=== PATIENT | male | born 1955 | race Caucasian/White ===

== ENCOUNTER → 2016-08-25 | Outpatient (CLI) | payer BC ==
[~2016-08-25] MED LIST: ASC400 PO; ASTNS NAE; BUPR200T2 PO; CETI10TA84 PO; CYCL-259 PO; ESOM40GR PO; HYOS0.1255 PO; LISD50CA PO; MULT-506 PO; SILD50TA PO; THIA100T11 PO; WARF5TAB90 PO; WARF7.5T PO
== END | disposition home or self-care (01) ==
LOC: C.RDSM 14:17
PROVIDERS: ATTEND Physical Medicine & Rehabilitation Sports Medicine
DX: M25.572 Pain in left ankle and joints of left foot (principal)

== ENCOUNTER 2023-01-16 07:40 | Observation (INO) ==
--- NOTE | 2023-01-16 08:02 | Emergency Department Note ---
History of Present Illness General Chief complaint: Chest Pain Stated complaint: CHEST/UPPER ABDOMINAL PAIN, SOB Time Seen by Provider: 01/16/23 07:48 History of Present Illness Maximum Pain Intensity: 8 67-year-old male with a history of cholelithiasis presents with an onset of midepigastric and right upper quadrant abdominal pain that woke him from sleep approximately 3 hours prior to arrival. Patient states nausea however no vomiting no diarrhea. Patient denies any substernal chest pressure denies shortness of breath denies cough denies hemoptysis. Patient had been followed up to 3 years ago annually with a CT abdomen pelvis which showed cholelithiasis. Patient's had no abdominal surgery. Currently rates pain moderate located in the midepigastrium right upper quadrant. There is no radiation of the pain. There are no other mitigating or alleviating factors Home Medications Medication Instructions Recorded Confirmed Type albuterol sulfate 90 mcg/actuation 90 mcg inhalation Q6H PRN 06/05/19 01/16/23 History breath activated powder inhaler Shortness Of Breath atorvastatin 20 mg tablet 20 mg PO PM 06/05/19 01/16/23 History bupropion HCl 200 mg tablet,12 hr 200 mg PO BID 06/05/19 01/16/23 History sustained-release cetirizine 10 mg tablet 10 mg PO QPM 06/05/19 01/16/23 History esomeprazole magnesium 40 mg 40 mg PO QAM 06/05/19 01/16/23 History capsule,delayed release montelukast 10 mg tablet 10 mg PO PM 06/05/19 01/16/23 History multivitamin 1 tab PO QAM 06/05/19 01/16/23 History sildenafil 50 mg tablet 50 mg PO DAILY PRN Erectile 06/05/19 01/16/23 History Dysfunction thiamine HCl (vitamin B1) 100 mg 100 mg PO QAM 06/05/19 01/16/23 History tablet amlodipine 5 mg tablet (Norvasc) 5 mg PO DAILY 10/27/22 01/16/23 History modafinil 200 mg tablet 200 mg PO DAILY 10/27/22 01/16/23 History warfarin 5 mg tablet 5 mg PO DAILY 10/27/22 01/16/23 History Allergies Allergy/AdvReac Type Severity Reaction Status Date / Time shellfish derived Allergy Unknown SWELLS UP Verified 10/27/22 13:42 Past Med/Surg History Medical History Anxiety and depression Asthma Environmental allergies Gene mutation mhtfr and prothrombin GERD (gastroesophageal reflux disease) High cholesterol Hx of deep venous thrombosis 2011 right - post fx of ankle Hx pulmonary embolism 12/2011 Osteoarthritis Seasonal allergies Ulcerative colitis Surgical History History of ankle surgery left History of colonoscopy S/P shoulder surgery Family History Father FHx: cancer Lung cancer Myocardial infarction Mother FHx: cancer Stroke Dementia Grandfather (Paternal) Colorectal cancer Uncle Colorectal cancer Heart disease Grandmother (Maternal) Stroke Denies family history of Ovarian cancer Prostate cancer Breast cancer Social History Smoking Status: Current every day smoker Tobacco Type: Cigarettes Age Started Using Tobacco: 18; Age Quit Using Tobacco: 39; packs per day: 1; Second Hand Exposure: No; Do You Dip or Chew Tobacco: No; Tobacco Cessation Education Requested by Patient: No Hx Alcohol Use: Yes Alcohol type: hard liquor Alcohol Intake Frequency: 4 or More x per/Week Hx Substance Use: No Preferred Language: Somali Communication Ability: Effective Visual Impairment: No Limitations Hearing Ability: Normal Athletic Coordinator Required: No Beliefs That Will Affect Care: None Current Living Situation: Spouse Other Information That Helps Us Care for You: No Feels Safe at Home: Yes Safety Concerns: Feels Safe At This Time Assistive Devices: Contacts and Glasses Assistive Devices Comment: contacts Review of Systems A total of 10 systems reviewed and were otherwise negative Gastrointestinal: + abdominal pain and + nausea Physical Exam Vital Signs Vital Signs - 24 hr 01/16/23 07:42 01/16/23 08:12 01/16/23 08:12 Temperature 37.0 C Temperature Source Temporal Artery Scan Pulse Rate 85 Pulse Rate [Apical] 74 Pulse Rhythm Respiratory Rate 14 20 Respiratory Effort / Characteristics Non-Labored Respiratory Depth Normal Blood Pressure 150/88 H Blood Pressure [Right Arm] 158/91 H Blood Pressure Mean 108 Blood Pressure Mean [Right Arm] 113 Blood Pressure Position [Right Arm] Pulse Oximetry 96 98 93 Oxygen Delivery Method Room Air Room Air Room Air Sepsis New/Unexplained Change in Mental Status No Sepsis Action Taken by Nursing No Action Required 01/16/23 08:12 01/16/23 08:14 01/16/23 08:57 Temperature Temperature Source Pulse Rate 74 77 Pulse Rate [Apical] 71 Pulse Rhythm Regular Respiratory Rate 20 Respiratory Effort / Characteristics Non-Labored Respiratory Depth Normal Blood Pressure Blood Pressure [Right Arm] 153/92 H Blood Pressure Mean Blood Pressure Mean [Right Arm] 112 Blood Pressure Position [Right Arm] Pulse Oximetry 93 94 Oxygen Delivery Method Room Air Room Air Sepsis New/Unexplained Change in Mental Status Sepsis Action Taken by Nursing 01/16/23 09:11 Temperature 36.6 C Temperature Source Oral Pulse Rate Pulse Rate [Apical] 70 Pulse Rhythm Respiratory Rate 16 Respiratory Effort / Characteristics Non-Labored Respiratory Depth Normal Blood Pressure Blood Pressure [Right Arm] 150/88 H Blood Pressure Mean Blood Pressure Mean [Right Arm] 108 Blood Pressure Position [Right Arm] Lying Pulse Oximetry 97 Oxygen Delivery Method Room Air Sepsis New/Unexplained Change in Mental Status Sepsis Action Taken by Nursing GENERAL: Patient is awake alert in no acute distress patient is resting comfortably and showing no signs of anxiety EYES: The conjunctivae are clear. The pupils are round and reactive. EARS, NOSE, MOUTH AND THROAT: The nose is without any evidence of any deformity. Mucous membranes are moist. Tongue is midline. NECK: The neck is nontender and supple. RESPIRATORY: Normal respiratory effort is noted there is no evidence of wheezing rhonchi or rales CARDIOVASCULAR: Regular rate and rhythm noted there no murmurs rubs or gallops normal S1 normal S2. Abdominal exam there is no rebound rigidity guarding or bowel sounds present there is tenderness in the midepigastrium in the right upper quadrant with palpation BACK: No midline tenderness or or step-off noted range of motion in flexion extension as well as rotation no signs of muscle spasm noted MUSCULOSKELETAL/EXTREMITIES: There is no evidence of gross deformity full range of motion is noted in the hips and shoulders. SKIN: There is no obvious evidence of any rash. There are no petechiae, pallor or cyanosis noted. NEUROLOGIC: Patient is awake alert and oriented x3 strength is symmetric Course Reevaluation(s) Reevaluation #1: Patient on repeat examination denies any specific abdominal pain at this time. He has been offered opiates he does not want any. I discussed the evaluation with the patient the patient's at bedside. Patient will be admitted Time: 09:02 Consultations Consultation #1: Spoke with Dr. Figueroa from surgery, will see the patient in consultation States admit to medicine Time: 08:55 Administered Medications Discontinued Medications Piperacillin Sod/Tazobactam Sod (Zosyn) 4.5 gm in 120 mls @ 240 mls/hr IV ONE STA Stop: 01/16/23 09:18 Last Admin: 01/16/23 09:10 Dose: 240 mls/hr Documented By: RANDA Medical Decision Making Medical Records Attestation: I reviewed the patient's medical records. Home Medications Current Medication List: was personally reviewed by me Laboratory Data Attestation: I reviewed the patient's lab results. Lab results relatively unremarkable 01/16/23 08:07 01/16/23 08:07 Lab Results 01/16/23 01/16/23 01/16/23 Range/Units 08:07 08:07 08:07 WBC 5.51 (4.8-10.8) K/ul RBC 4.49 L (4.70-6.10) M/uL Hgb 14.3 (14.0-18.0) g/dl Hct 41.4 L (42.0-52.0) % MCV 92.2 (80.0-100.0) fL MCH 31.8 (25.0-34.0) pg MCHC 34.5 (32.0-36.0) g/dL RDW Std Deviation 45.1 (36.4-46.3) fL RDW Coeff of [place] 13.2 (11.5-14.5) % Plt Count 251 (130-400) K/uL MPV 9.6 (9.4-12.4) fL Immature Gran % (Auto) 0.5 % Neut % (Auto) 47.6 % Lymph % (Auto) 29.0 % Ada % (Auto) 13.1 % Eos % (Auto) 8.7 % Baso % (Auto) 1.1 % Neut # (Auto) 2.62 (1.40-6.50) K/uL Lymph # (Auto) 1.60 (1.2-3.4) K/uL Ada # (Auto) 0.72 H (0.11-0.59) K/uL Eos # (Auto) 0.48 (0-0.50) K/uL Baso # (Auto) 0.06 (0-0.2) K/uL Immature Gran # (Auto) 0.03 (0.01-0.20) K/uL PT 29.1 H (9.0-12.0) Seconds INR 2.8 H (0.9-1.1) APTT 35.8 H (21.0-31.0) Seconds PTT Ratio 1.3 Sodium 142 (136-145) mmol/L Potassium 3.9 (3.5-5.1) mmol/L Chloride 106 (98-107) mmol/L Carbon Dioxide 32 (21-32) mmol/L Anion Gap 4 (3-11) BUN 10 (6-23) mg/dl Creatinine 1.11 (0.6-1.4) mg/dl Est Cr Clr Drug Dosing 82.0 ml/min Est GFR ( Amer) 80.3 ml/min Est GFR (Non-Af Amer) 69.3 ml/min BUN/Creatinine Ratio 9.0 L (10-20) Glucose 98 (70-99(Fasting)) mg/dl Calcium 9.2 (8.6-10.3) mg/dl Total Bilirubin 0.3 (0.2-1.0) mg/dl AST 22 (13-39) U/L ALT 19 (7-52) U/L Alkaline Phosphatase 110 H (34-104) U/L Troponin I High Sens 5.7 (0-20) pg/ml Total Protein 7.1 (6.0-8.3) gm/dl Albumin 4.2 (3.4-5.0) gm/dl Globulin 2.9 (2.5-4.0) gm/dl Albumin/Globulin Ratio 1.4 (0.9-2) Lipase 32 (11-82) U/L SARS-CoV-2, RNA, NAAT (NEGATIVE) 01/16/23 Range/Units 08:07 WBC (4.8-10.8) K/ul RBC (4.70-6.10) M/uL Hgb (14.0-18.0) g/dl Hct (42.0-52.0) % MCV (80.0-100.0) fL MCH (25.0-34.0) pg MCHC (32.0-36.0) g/dL RDW Std Deviation (36.4-46.3) fL RDW Coeff of [place] (11.5-14.5) % Plt Count (130-400) K/uL MPV (9.4-12.4) fL Immature Gran % (Auto) % Neut % (Auto) % Lymph % (Auto) % Ada % (Auto) % Eos % (Auto) % Baso % (Auto) % Neut # (Auto) (1.40-6.50) K/uL Lymph # (Auto) (1.2-3.4) K/uL Ada # (Auto) (0.11-0.59) K/uL Eos # (Auto) (0-0.50) K/uL Baso # (Auto) (0-0.2) K/uL Immature Gran # (Auto) (0.01-0.20) K/uL PT (9.0-12.0) Seconds INR (0.9-1.1) APTT (21.0-31.0) Seconds PTT Ratio Sodium (136-145) mmol/L Potassium (3.5-5.1) mmol/L Chloride (98-107) mmol/L Carbon Dioxide (21-32) mmol/L Anion Gap (3-11) BUN (6-23) mg/dl Creatinine (0.6-1.4) mg/dl Est Cr Clr Drug Dosing ml/min Est GFR ( Amer) ml/min Est GFR (Non-Af Amer) ml/min BUN/Creatinine Ratio (10-20) Glucose (70-99(Fasting)) mg/dl Calcium (8.6-10.3) mg/dl Total Bilirubin (0.2-1.0) mg/dl AST (13-39) U/L ALT (7-52) U/L Alkaline Phosphatase (34-104) U/L Troponin I High Sens (0-20) pg/ml Total Protein (6.0-8.3) gm/dl Albumin (3.4-5.0) gm/dl Globulin (2.5-4.0) gm/dl Albumin/Globulin Ratio (0.9-2) Lipase (11-82) U/L SARS-CoV-2, RNA, NAAT NEGATIVE (NEGATIVE) Imaging Data Attestation: I personally reviewed and interpreted this imaging study as follows: My Impression: Chest x-ray interpreted by me negative for infiltrate Radiologist's Impression: Chest X-Ray 01/16/23 07:48 XR chest 1V portable CLINICAL HISTORY: Chest pain, nonspecific COMPARISON STUDY: Chest radiograph and chest CT June 23, 2019. FINDINGS: Lung volumes are normal. Lungs are clear. There is no pneumothorax or pleural effusion. Cardiac size is normal. Mediastinal contours are normal. There is no evidence for pulmonary edema. IMPRESSION: No acute cardiopulmonary findings. ACT 112: Negative or not required by law. Electronically signed by: Chato Tubbs M.D. 01/16/2023 7:58 AM Abdomen/Pelvis CT 01/16/23 07:59 CT OF THE ABDOMEN AND PELVIS WITHOUT CONTRAST CLINICAL HISTORY: Abdominal pain. COMPARISON STUDY: No previous studies for comparison. TECHNIQUE: Axial images of the abdomen and pelvis were obtained without IV contrast. Images were reviewed in the axial, sagittal, and coronal planes. Automated exposure control was utilized for the study. A dose lowering technique was utilized adhering to the principles of ALARA. FINDINGS: Lung bases are unremarkable. No pneumatosis, free air or portal venous gas is present. No renal, ureteral or bladder calculi are present. There is no hydronephrosis or hydroureter. Evaluation of the remainder of the abdomen and pelvis is suboptimal on this unenhanced exam. There is a 2.5 cm gallstone within the gallbladder neck. There is minimal pericholecystic stranding. Gallbladder is slightly distended when compared to chest CT of June 23, 2019. Unenhanced images of the spleen, adrenal glands, kidneys and pancreas are unremarkable. Is no evidence for a bowel obstruction. The appendix is normal. There is no lymphadenopathy. There is colonic diverticulosis without evidence for acute diverticulitis. IMPRESSION: 1. Gallstone within the gallbladder neck. Minimal pericholecystic stranding with mild gallbladder distention. The findings raise the possibility of acute cholecystitis. Right upper quadrant ultrasound could be obtained for further evaluation. 2. No urinary calculi or hydronephrosis. 3. No bowel obstruction. 4. Colonic diverticulosis. No evidence for acute diverticulitis. ACT 112: Negative or not required by law. Electronically signed by: Chato Tubbs M.D. 01/16/2023 8:34 AM ECG Data Attestation: I personally reviewed and interpreted this ECG as follows: Additional Comments: Medical decision making differential diagnosis includes normal sinus rhythm rate of 77 normal intervals normal axis no obvious ST segment elevation or depression Telemetry was ordered by me, interpreted as normal sinus rhythm rate of 77 MDM Narrative Medical decision making differential diagnosis gastritis gastroenteritis pancreatitis biliary colic cholecystitis cholelithiasis dehydration, acute coronary syndrome Plan is to check labs, EKG, CT, give IV fluids IV Zofran External medical records were reviewed by me Patient has choledocholithiasis with cholecystitis, case was discussed with the surgeon on-call, patient will be admitted for further evaluation, patient was started on IV Zosyn Impression & Plan Choledocholithiasis with acute cholecystitis Discharge Plan Visit Data Chief Complaint: Chest Pain Stated Complaint: CHEST/UPPER ABDOMINAL PAIN, SOB ED Provider: Caden Santiago Discharge Problem: Choledocholithiasis with acute cholecystitis Patient Disposition: Admitted As Inpatient Forms Stand Alone Forms: My [facility] Prescriptions Prescriptions: No Action amlodipine [Norvasc] 5 mg tablet 5 mg PO DAILY modafinil 200 mg tablet 200 mg PO DAILY atorvastatin 20 mg Tablet 20 mg PO PM montelukast 10 mg Tablet 10 mg PO PM albuterol sulfate 90 mcg/actuation Aerosol Powdr Breath Activated 90 mcg INHALATION Q6H PRN (Reason: Shortness Of Breath) cetirizine 10 mg Tablet 10 mg PO QPM esomeprazole magnesium 40 mg Capsule,Delayed Release(Dr/Ec) 40 mg PO QAM bupropion HCl 200 mg Tablet Sustained-Release 12 Hr 200 mg PO BID multivitamin Tablet 1 tab PO QAM sildenafil 50 mg Tablet 50 mg PO DAILY PRN (Reason: Erectile Dysfunction) thiamine HCl (vitamin B1) 100 mg Tablet 100 mg PO QAM warfarin 5 mg tablet 5 mg PO DAILY Rx Instructions: Pt is to take this dose on Fridays Referrals Referrals: Puma Coburn MD [Primary Care Provider] -
[2023-01-16 08:30] LABS: Basophils # (auto) 0.06 K/uL (0-0.2); Basophils % (auto) 1.1 %; Eosinophils # (auto) 0.48 K/uL (0-0.50); Eosinophils % (auto) 8.7 %; Hematocrit (blood only) 41.4 % (42.0-52.0); Hemoglobin 14.3 g/dl (14.0-18.0); Immature Granulocytes # (auto) 0.03 K/uL (0.01-0.20); Immature Granulocytes % (auto) 0.5 %; Mean Corpuscular Hemoglobin 31.8 pg (25.0-34.0); Mean Corpuscular Hgb Conc 34.5 g/dL (32.0-36.0); Mean Corpuscular Volume 92.2 fL (80.0-100.0); Mean Platelet Volume 9.6 fL (9.4-12.4); Monocytes # (auto) 0.72 K/uL (0.11-0.59); Monocytes % (auto) 13.1 %; Neutrophils # (auto) 2.62 K/uL (1.40-6.50); Neutrophils % (auto) 47.6 %; Platelet Count 251 K/uL (130-400); RDW Coefficient of Variation 13.2 % (11.5-14.5); RDW Standard Deviation 45.1 fL (36.4-46.3); Red Blood Count 4.49 M/uL (4.70-6.10); White Blood Count 5.51 K/ul (4.8-10.8)
--- NOTE | 2023-01-16 08:36 | CT Scan Report ---
CT OF THE ABDOMEN AND PELVIS WITHOUT CONTRAST CLINICAL HISTORY: Abdominal pain. COMPARISON STUDY: No previous studies for comparison. TECHNIQUE: Axial images of the abdomen and pelvis were obtained without IV contrast. Images were revi ewed in the axial, sagittal, and coronal planes. Automated exposure control was utilized for the ricki dy. A dose lowering technique was utilized adhering to the principles of ALARA. FINDINGS: Lung bases are unremarkable. No pneumatosis, free air or portal venous gas is present. No r enal, ureteral or bladder calculi are present. There is no hydronephrosis or hydroureter. Evaluation of the remainder of the abdomen and pelvis is suboptimal on this unenhanced exam. There is a 2.5 cm g allstone within the gallbladder neck. There is minimal pericholecystic stranding. Gallbladder is slig htly distended when compared to chest CT of June 23, 2019. Unenhanced images of the spleen, adren al glands, kidneys and pancreas are unremarkable. Is no evidence for a bowel obstruction. The appendi x is normal. There is no lymphadenopathy. There is colonic diverticulosis without evidence for acute diverticulitis. IMPRESSION: 1. Gallstone within the gallbladder neck. Minimal pericholecystic stranding with mild gallbladder dis tention. The findings raise the possibility of acute cholecystitis. Right upper quadrant ultrasound could be obtained for further evaluation. 2. No urinary calculi or hydronephrosis. 3. No bowel obstruction. 4. Colonic diverticulosis. No evidence for acute diverticulitis. ACT 112: Negative or not required by law. Electronically signed by: Chato Tubbs M.D. 01/16/2023 8:34 AM
[2023-01-16 08:44] LABS: Albumin Globulin Ratio 1.4 (0.9-2); Albumin Level 4.2 gm/dl (3.4-5.0); Bilirubin,Total 0.3 mg/dl (0.2-1.0); Calcium 9.2 mg/dl (8.6-10.3); Est GFR (African American) 80.3 ml/min; Est GFR (Non-African American) 69.3 ml/min; Globulin 2.9 gm/dl (2.5-4.0); Potassium 3.9 mmol/L (3.5-5.1); Total Protein 7.1 gm/dl (6.0-8.3)
[2023-01-16] MEDS ORDERED: PIPERACILLIN/TAZOBACTAM 4.5 GM in DEXTROSE 5% 100 ML IV ONE (08:44)
[2023-01-16] MEDS ORDERED: PIPERACILLIN/TAZOBACTAM 4.5 GM/120 ML BAG IV STA (08:49)
[2023-01-16 08:50] LABS: Troponin I High Sensitivity 5.7 pg/ml (0-20)
[2023-01-16 08:59] LABS: INR 2.8 (0.9-1.1); Partial Thromboplastin Ratio 1.3; Partial Thromboplastin Time 35.8 Seconds (21.0-31.0); Prothrombin Time 29.1 Seconds (9.0-12.0)
[2023-01-16] MEDS ORDERED: MoRPHine SULFATE 2 MG/ML CARP IV PRN (09:45)
[2023-01-16] MEDS ORDERED: ACETAMINOPHEN 1,000 MG/100 ML VIAL IV PRN (09:45)
--- NOTE | 2023-01-16 09:53 | History & Physical Report ---
Date of Service January 16, 2023 Assessment & Plan (1) Choledocholithiasis with acute cholecystitis: (2) History of seasonal allergies: (3) History of asthma: (4) Hx of deep venous thrombosis: (5) Hx pulmonary embolism: (6) Anxiety and depression: (7) Hypertension: Plan Pt is a 67yoM with PMhx significant for known longstanding cholelithiasis, Hx of PE/DVT in the setting of a known prothrombin and MTHFR gene mutation, HTN, HLD, Anxiety/Depression, ADHD, asthma/chronic allergies, GERD, chronic alcohol use who presented with acute epigastric pain. Admitted with acute cholecystitis in the setting of an obstructed gallstone. Epigastric pain/Acute cholecystitis Pt states he woke up with epigastric and RUQ pain, constant and sharp States known Hx of gallstones for the last [address] abd pelvis in the ED noted "Gallstone within the gallbladder neck. Minimal pericholecystic stranding with mild gallbladder distention. The findings raise the possibility of acute cholecystitis. Right upper quadrant ultrasound could be obtained for further evaluation." Abdomen US pending. WBC wnl, hepatic enzymes grossly normal (alk phos only slightly elevated at 110) General Surgery contacted by the ED NPO, pain control with IV morphine for mod-severe pain, IV tylenol for mild pain Continue IV Zosyn, blood Cx pending. Hx of DVT/PE Pt states that he has a known prothrombin and MTHFR gene mutation Currently anticoagulated with warfarin, follows with the [facility] anticoagulation clinic INR in the ED currently 2.8, will hold warfarin in anticipation of surgery, appreciate surgery recs Chronic Alcohol Use Pt states that he drinks 2 oz of Gin daily, for the past 10+ years. AWSS protocol for withdrawal monitoring, treatment if needed Consider counseling Continue home thiamine ADHD Continue home modafinil HTN Continue home amlodipine HLD Continue home statin Anxiety/Depression Continue home Wellbutrin Asthma/Allergies Continue home singulair, inhaler and cetirizine ED Holding home sildenafil GERD continue home ppi CODE STATUS: Full code DVT prophylaxis: INR currently 2.8 on warfarin, holding in anticipation of surgery Diet: NPO Dispo: Med/Surg History of Present Illness Chief Complaint: Chest pain Primary Care Provider: Puma Coburn MD Pt is a 67yoM with PMhx significant for known longstanding cholelithiasis, Hx of PE/DVT in the setting of a known prothrombin and MTHFR gene mutation, HTN, HLD, Anxiety/Depression, ADHD, chronic allergies, GERD, chronic alcohol use who presented with acute epigastric pain. States that he typically follows with [facility] but established in October with Terri Flynn and decided to switch back to [facility]. States that he woke up this morning with significant pain in the epigastric and RUQ region this AM. Describes the pain as nonradiating, crampy. Associated with nausea but no vomitting. Has not eaten anything this AM but last meal was last night. 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 Last dose was the 5mg at 9PM last night. Admits to drinking daily gin, 2oz for the last 10 years or so. States he knew he had gallstones as it was brought up at a pcp visit 7 years ago and he states they were surprised that the gallbladder had not been taken out yet. Declining pain meds in the ED at this time. Allergies Allergy/AdvReac Type Severity Reaction Status Date / Time shellfish derived Allergy Unknown SWELLS UP Verified 10/27/22 13:42 Home Medications Medication Instructions Recorded Confirmed Type albuterol sulfate 90 mcg/actuation 90 mcg inhalation Q6H PRN 06/05/19 01/16/23 History breath activated powder inhaler Shortness Of Breath atorvastatin 20 mg tablet 20 mg PO PM 06/05/19 01/16/23 History bupropion HCl 200 mg tablet,12 hr 200 mg PO BID 06/05/19 01/16/23 History sustained-release cetirizine 10 mg tablet 10 mg PO QPM 06/05/19 01/16/23 History esomeprazole magnesium 40 mg 40 mg PO QAM 06/05/19 01/16/23 History capsule,delayed release montelukast 10 mg tablet 10 mg PO PM 06/05/19 01/16/23 History multivitamin 1 tab PO QAM 06/05/19 01/16/23 History sildenafil 50 mg tablet 50 mg PO DAILY PRN Erectile 06/05/19 01/16/23 History Dysfunction thiamine HCl (vitamin B1) 100 mg 100 mg PO QAM 06/05/19 01/16/23 History tablet amlodipine 5 mg tablet (Norvasc) 5 mg PO DAILY 10/27/22 01/16/23 History modafinil 200 mg tablet 200 mg PO DAILY 10/27/22 01/16/23 History warfarin 5 mg tablet 5 mg PO DAILY 10/27/22 01/16/23 History Past Med/Surg History Medical History Anxiety and depression Asthma Environmental allergies Gene mutation mhtfr and prothrombin GERD (gastroesophageal reflux disease) High cholesterol Hx of deep venous thrombosis 2011 right - post fx of ankle Hx pulmonary embolism 12/2011 Osteoarthritis Seasonal allergies Ulcerative colitis Surgical History History of ankle surgery left History of colonoscopy S/P shoulder surgery Family History Father FHx: cancer Lung cancer Myocardial infarction Mother FHx: cancer Stroke Dementia Grandfather (Paternal) Colorectal cancer Uncle Colorectal cancer Heart disease Grandmother (Maternal) Stroke Denies family history of Ovarian cancer Prostate cancer Breast cancer Social History Smoking Status: Current every day smoker Tobacco Type: Cigarettes Age Started Using Tobacco: 18; Age Quit Using Tobacco: 39; packs per day: 1; Second Hand Exposure: No; Do You Dip or Chew Tobacco: No; Tobacco Cessation Education Requested by Patient: No Hx Alcohol Use: Yes Alcohol type: hard liquor Alcohol Intake Frequency: 4 or More x per/Week Hx Substance Use: No Preferred Language: Greek Communication Ability: Effective Visual Impairment: No Limitations Hearing Ability: Normal [employer] Teammate Required: No Beliefs That Will Affect Care: None Current Living Situation: Spouse Other Information That Helps Us Care for You: No Feels Safe at Home: Yes Safety Concerns: Feels Safe At This Time Assistive Devices: Contacts and Glasses Assistive Devices Comment: contacts Review of Systems Review of Systems: All systems reviewed & are unremarkable except as noted in HPI & below Physical Exam Physical Exam: General: Alert, oriented. No acute distress, laying in bed Skin: No noted rashes or bruises Psych: Appropriate mood and affect Neuro: No gross deficits HEENT: NC/AT Chest: tender to palpation in the epigastrium CV: RRR, Normal s1, s2. No murmurs appreciated Resp: Breath sounds clear bilaterally, no increased effort of breathing. Abdomen: BS+. Soft, tender in epigastrium and RUQ. Extremities: No edema in lower extremities bilaterally. Results & Data Results & Data Vital Signs (Past 12 Hours) Vital Signs Temp Pulse Pulse Resp BP BP Pulse Ox 01/16/23 09:37 72 20 153/86 H 97 01/16/23 09:11 36.6 C 70 16 150/88 H 97 01/16/23 08:57 71 20 153/92 H 94 01/16/23 08:14 77 01/16/23 08:12 74 93 01/16/23 08:12 74 20 158/91 H 93 01/16/23 08:12 98 01/16/23 07:42 37.0 C 85 14 150/88 H 96 O2 Del Method 01/16/23 09:37 Room Air 01/16/23 09:11 Room Air 01/16/23 08:57 Room Air 01/16/23 08:14 01/16/23 08:12 Room Air 01/16/23 08:12 Room Air 01/16/23 08:12 Room Air 01/16/23 07:42 Room Air Laboratory Results 01/16/23 10:15 Aerobic Blood Culture - Pending Blood Anaerobic Blood Culture - Pending 01/16/23 10:15 Aerobic Blood Culture - Pending Blood Anaerobic Blood Culture - Pending 01/16/23 01/16/23 01/16/23 08:07 08:07 08:07 WBC RBC Hgb Hct MCV MCH MCHC RDW Std Deviation RDW Coeff of [place] Plt Count MPV Immature Gran % (Auto) Neut % (Auto) Lymph % (Auto) [place] % (Auto) Eos % (Auto) Baso % (Auto) Neut # (Auto) Lymph # (Auto) [place] # (Auto) Eos # (Auto) Baso # (Auto) Immature Gran # (Auto) PT 29.1 H INR 2.8 H APTT 35.8 H PTT Ratio 1.3 Sodium 142 Potassium 3.9 Chloride 106 Carbon Dioxide 32 Anion Gap 4 BUN 10 Creatinine 1.11 Est Cr Clr Drug Dosing 82.0 Est GFR ( Amer) 80.3 Est GFR (Non-Af Amer) 69.3 BUN/Creatinine Ratio 9.0 L Glucose 98 Calcium 9.2 Total Bilirubin 0.3 AST 22 ALT 19 Alkaline Phosphatase 110 H Troponin I High Sens 5.7 Total Protein 7.1 Albumin 4.2 Globulin 2.9 Albumin/Globulin Ratio 1.4 Lipase 32 SARS-CoV-2, RNA, NAAT NEGATIVE 01/16/23 08:07 WBC 5.51 RBC 4.49 L Hgb 14.3 Hct 41.4 L MCV 92.2 MCH 31.8 MCHC 34.5 RDW Std Deviation 45.1 RDW Coeff of [place] 13.2 Plt Count 251 MPV 9.6 Immature Gran % (Auto) 0.5 Neut % (Auto) 47.6 Lymph % (Auto) 29.0 [place] % (Auto) 13.1 Eos % (Auto) 8.7 Baso % (Auto) 1.1 Neut # (Auto) 2.62 Lymph # (Auto) 1.60 [place] # (Auto) 0.72 H Eos # (Auto) 0.48 Baso # (Auto) 0.06 Immature Gran # (Auto) 0.03 PT INR APTT PTT Ratio Sodium Potassium Chloride Carbon Dioxide Anion Gap BUN Creatinine Est Cr Clr Drug Dosing Est GFR ( Amer) Est GFR (Non-Af Amer) BUN/Creatinine Ratio Glucose Calcium Total Bilirubin AST ALT Alkaline Phosphatase Troponin I High Sens Total Protein Albumin Globulin Albumin/Globulin Ratio Lipase SARS-CoV-2, RNA, NAAT Diagnostic Findings Chest X-Ray 01/16/23 07:48 XR chest 1V portable CLINICAL HISTORY: Chest pain, nonspecific COMPARISON STUDY: Chest radiograph and chest CT June 23, 2019. FINDINGS: Lung volumes are normal. Lungs are clear. There is no pneumothorax or pleural effusion. Cardiac size is normal. Mediastinal contours are normal. There is no evidence for pulmonary edema. IMPRESSION: No acute cardiopulmonary findings. ACT 112: Negative or not required by law. Electronically signed by: Chato Tubbs M.D. 01/16/2023 7:58 AM Abdomen/Pelvis CT 01/16/23 07:59 CT OF THE ABDOMEN AND PELVIS WITHOUT CONTRAST CLINICAL HISTORY: Abdominal pain. COMPARISON STUDY: No previous studies for comparison. TECHNIQUE: Axial images of the abdomen and pelvis were obtained without IV contrast. Images were reviewed in the axial, sagittal, and coronal planes. Automated exposure control was utilized for the study. A dose lowering technique was utilized adhering to the principles of ALARA. FINDINGS: Lung bases are unremarkable. No pneumatosis, free air or portal venous gas is present. No renal, ureteral or bladder calculi are present. There is no hydronephrosis or hydroureter. Evaluation of the remainder of the abdomen and pelvis is suboptimal on this unenhanced exam. There is a 2.5 cm gallstone within the gallbladder neck. There is minimal pericholecystic stranding. Gallbladder is slightly distended when compared to chest CT of June 23, 2019. Unenhanced images of the spleen, adrenal glands, kidneys and pancreas are unremarkable. Is no evidence for a bowel obstruction. The appendix is normal. There is no lymphadenopathy. There is colonic diverticulosis without evidence for acute diverticulitis. IMPRESSION: 1. Gallstone within the gallbladder neck. Minimal pericholecystic stranding with mild gallbladder distention. The findings raise the possibility of acute cholecystitis. Right upper quadrant ultrasound could be obtained for further evaluation. 2. No urinary calculi or hydronephrosis. 3. No bowel obstruction. 4. Colonic diverticulosis. No evidence for acute diverticulitis. ACT 112: Negative or not required by law. Electronically signed by: Chato Tubbs M.D. 01/16/2023 8:34 AM Code Status & VTE Plan VTE Prophylaxis Plan VTE Prophylaxis will be ordered: Yes
--- NOTE | 2023-01-16 10:06 | Electrocardiogram Report ---
Test Reason : Blood Pressure : / mmHG Vent. Rate : 077 BPM Atrial Rate : 077 BPM P-R Int : 122 ms QRS Dur : 084 ms QT Int : 392 ms P-R-T Axes : 041 047 053 degrees QTc Int : 443 ms Normal sinus rhythm Normal ECG When compared with ECG of 23-JUN-2019 16:15, Vent. rate has decreased BY [address] abnormality no longer present Confirmed by Jamal Mccall ([id number]) on 01/16/2023 10:05:54 AM Referred By: REFERRED SELF Confirmed By:Jamal Mccall
--- NOTE | 2023-01-16 10:57 | Ultrasound Report ---
ABDOMINAL ULTRASOUND, RIGHT UPPER QUADRANT HISTORY: epigastric pain, noted gallstone in neck on CT. COMPARISON: CT of the abdomen and pelvis performed earlier today. FINDINGS: Liver is sonographically normal. There is no biliary ductal dilatation. There is a 1.8 cm n onmobile stone within the gallbladder neck. The gallbladder wall is mildly thickened. No sonographic Osborne sign was elicited. There is no pericholecystic fluid. Pancreas is unremarkable by sonography. There is no right hydronephrosis. IMPRESSION: 1. Cholelithiasis with mild gallbladder wall thickening. No sonographic Osborne sign. The findings are equivocal for acute cholecystitis. A nuclear medicine hepatobiliary study could be performed. 2. No biliary ductal dilatation. ACT 112: Negative or not required by law. Electronically signed by: Chato Tubbs M.D. 01/16/2023 10:55 AM
[2023-01-16] MEDS ORDERED: GABAPENTIN 1200MG ALCOHOL WITHDRAWAL LOAD PO STA (11:39)
[2023-01-16] MEDS ORDERED: GABAPENTIN 600 MG TAB PO ONE (11:39)
[2023-01-16] MEDS ORDERED: LORazepam 2 MG/1 ML VIAL IV PRN (11:39)
[2023-01-16] MEDS ORDERED: ALBUTEROL HFA 8 GM INHALER INH PRN (11:45)
--- NOTE | 2023-01-16 11:52 | Surgery Consultation ---
Date of Consultation January 16, 2023 Assessment & Plan (1) Acute cholecystitis: (2) Hx of deep venous thrombosis: (3) Hx pulmonary embolism: Plan 67-year-old gentleman with equivocal evidence of acute cholecystitis on ultrasound and CT scan. His white blood cell count is normal as are his LFTs. There is no evidence of choledocholithiasis. He is on warfarin for his MT HFR gene mutation, and his INR is 2.8. His pain has resolved. He will be admitted to the hospital for observation, IV antibiotics, rechecking of the labs. Given his gene mutation and Coumadin, I would not plan any urgent surgery, especially as his symptoms have resolved. We will plan to treat him with antibiotics and have him follow-up in the office for consideration of elective cholecystectomy in 4 to 6 weeks. We will continue to follow while he is in the hospital. History of Present Illness Reason for Consultation: Acute cholecystitis Requesting Physician: Nikia Barlow MD Attending Physician: Nikia Barlow MD History of Present Illness 67-year-old gentleman with a history of MTHFR gene mutation and history of DVT and pulmonary embolus presents with a 8-hour history of severe right upper quadrant abdominal pain. This began at 4:00 this morning. It was not accom panied with nausea or vomiting. The pain did not radiate to his back or shoulder. He denies chest pain or shortness of breath. He denies fevers or chills. He did eat a hamburger last night. He has never had any symptoms like this in the past. He has been told he has had gallstones in the past. In the emergency department, his pain has significantly improved with pain medicine. His white blood cell count is normal. His LFTs are normal. Ultrasound and CT scan demonstrate slight gallbladder wall thickening without evidence of pericholecystic fluid. He has no Osborne sign. No biliary ductal dilatation. Of note, he is on Coumadin for his MTHFR gene mutation and has an INR of 2.8. Allergies Allergy/AdvReac Type Severity Reaction Status Date / Time shellfish derived Allergy Unknown SWELLS UP Verified 10/27/22 13:42 Home Medications Medication Instructions Recorded Confirmed Type albuterol sulfate 90 mcg/actuation 90 mcg inhalation Q6H PRN 06/05/19 01/16/23 History breath activated powder inhaler Shortness Of Breath atorvastatin 20 mg tablet 20 mg PO PM 06/05/19 01/16/23 History bupropion HCl 200 mg tablet,12 hr 200 mg PO BID 06/05/19 01/16/23 History sustained-release cetirizine 10 mg tablet 10 mg PO QPM 06/05/19 01/16/23 History esomeprazole magnesium 40 mg 40 mg PO QAM 06/05/19 01/16/23 History capsule,delayed release montelukast 10 mg tablet 10 mg PO PM 06/05/19 01/16/23 History multivitamin 1 tab PO QAM 06/05/19 01/16/23 History sildenafil 50 mg tablet 50 mg PO DAILY PRN Erectile 06/05/19 01/16/23 History Dysfunction thiamine HCl (vitamin B1) 100 mg 100 mg PO QAM 06/05/19 01/16/23 History tablet amlodipine 5 mg tablet (Norvasc) 5 mg PO DAILY 10/27/22 01/16/23 History modafinil 200 mg tablet 200 mg PO DAILY 10/27/22 01/16/23 History warfarin 5 mg tablet 5 mg PO DAILY 10/27/22 01/16/23 History Patient History Medical History (Updated 01/16/23 @ 11:53 by Osei Figueroa MD) Anxiety and depression Asthma Environmental allergies Gene mutation mhtfr and prothrombin GERD (gastroesophageal reflux disease) High cholesterol Hx of deep venous thrombosis 2011 right - post fx of ankle Hx pulmonary embolism 12/2011 Osteoarthritis Seasonal allergies Ulcerative colitis Surgical History History of ankle surgery left History of colonoscopy S/P shoulder surgery Family History Father FHx: cancer Lung cancer Myocardial infarction Mother FHx: cancer Stroke Dementia Grandfather (Paternal) Colorectal cancer Uncle Colorectal cancer Heart disease Grandmother (Maternal) Stroke Denies family history of Ovarian cancer Prostate cancer Breast cancer Social History Smoking Status: Current every day smoker Tobacco Type: Cigarettes Age Started Using Tobacco: 18; Age Quit Using Tobacco: 39; packs per day: 1; Second Hand Exposure: No; Do You Dip or Chew Tobacco: No; Tobacco Cessation Education Requested by Patient: No Hx Alcohol Use: Yes Alcohol type: hard liquor Alcohol Intake Frequency: 4 or More x per/Week Hx Substance Use: No Preferred Language: Albanian Communication Ability: Effective Visual Impairment: No Limitations Hearing Ability: Normal [employer] Required: No Beliefs That Will Affect Care: None Current Living Situation: Spouse Other Information That Helps Us Care for You: No Feels Safe at Home: Yes Safety Concerns: Feels Safe At This Time Assistive Devices: Contacts and Glasses Assistive Devices Comment: contacts Review of Systems Review of Systems: All systems reviewed & are unremarkable except as noted in HPI & below Physical Exam Constitutional: WD/WN, vitals as above Eyes: PERRL, conjunctivae normal, anicteric sclerae Neck: trachea midline, no thyromegaly Respiratory: normal respiratory effort; no respiratory distress and no labored breathing Cardiovascular: Rate/Rhythm: regular rate and regular rhythm Gastrointestinal (Abdomen): Inspection/Auscultation: abdomen normal to inspection; abdomen not distended Percussion/Palpation: abdomen soft; abdomen nontender, no guarding and abdomen not rigid Skin: no rashes, warm and dry Psychiatric: A+Ox3, euthymic affect Results & Data Vital Signs (Past 12 Hours) Vital Signs Temp Pulse Pulse Resp BP BP Pulse Ox 01/16/23 11:06 36.6 C 73 15 143/91 H 95 01/16/23 11:00 67 15 143/91 H 95 01/16/23 10:34 84 16 93 01/16/23 09:37 72 20 153/86 H 97 01/16/23 09:11 36.6 C 70 16 150/88 H 97 01/16/23 08:57 71 20 153/92 H 94 01/16/23 08:14 77 01/16/23 08:12 74 93 01/16/23 08:12 74 20 158/91 H 93 01/16/23 08:12 98 01/16/23 07:42 37.0 C 85 14 150/88 H 96 O2 Del Method 01/16/23 11:06 Room Air 01/16/23 11:00 01/16/23 10:34 Room Air 01/16/23 09:37 Room Air 01/16/23 09:11 Room Air 01/16/23 08:57 Room Air 01/16/23 08:14 01/16/23 08:12 Room Air 01/16/23 08:12 Room Air 01/16/23 08:12 Room Air 01/16/23 07:42 Room Air Laboratory Results 01/16/23 01/16/23 01/16/23 Range/Units 08:07 08:07 08:07 WBC (4.8-10.8) K/ul RBC (4.70-6.10) M/uL Hgb (14.0-18.0) g/dl Hct (42.0-52.0) % MCV (80.0-100.0) fL MCH (25.0-34.0) pg MCHC (32.0-36.0) g/dL RDW Std Deviation (36.4-46.3) fL RDW Coeff of [place] (11.5-14.5) % Plt Count (130-400) K/uL MPV (9.4-12.4) fL Immature Gran % (Auto) % Neut % (Auto) % Lymph % (Auto) % [place] % (Auto) % Eos % (Auto) % Baso % (Auto) % Neut # (Auto) (1.40-6.50) K/uL Lymph # (Auto) (1.2-3.4) K/uL [place] # (Auto) (0.11-0.59) K/uL Eos # (Auto) (0-0.50) K/uL Baso # (Auto) (0-0.2) K/uL Immature Gran # (Auto) (0.01-0.20) K/uL PT 29.1 H (9.0-12.0) Seconds INR 2.8 H (0.9-1.1) APTT 35.8 H (21.0-31.0) Seconds PTT Ratio 1.3 Sodium 142 (136-145) mmol/L Potassium 3.9 (3.5-5.1) mmol/L Chloride 106 (98-107) mmol/L Carbon Dioxide 32 (21-32) mmol/L Anion Gap 4 (3-11) BUN 10 (6-23) mg/dl Creatinine 1.11 (0.6-1.4) mg/dl Est Cr Clr Drug Dosing 82.0 ml/min Est GFR ( Amer) 80.3 ml/min Est GFR (Non-Af Amer) 69.3 ml/min BUN/Creatinine Ratio 9.0 L (10-20) Glucose 98 (70-99(Fasting)) mg/dl Calcium 9.2 (8.6-10.3) mg/dl Total Bilirubin 0.3 (0.2-1.0) mg/dl AST 22 (13-39) U/L ALT 19 (7-52) U/L Alkaline Phosphatase 110 H (34-104) U/L Troponin I High Sens 5.7 (0-20) pg/ml Total Protein 7.1 (6.0-8.3) gm/dl Albumin 4.2 (3.4-5.0) gm/dl Globulin 2.9 (2.5-4.0) gm/dl Albumin/Globulin Ratio 1.4 (0.9-2) Lipase 32 (11-82) U/L SARS-CoV-2, RNA, NAAT NEGATIVE (NEGATIVE) 01/16/23 Range/Units 08:07 WBC 5.51 (4.8-10.8) K/ul RBC 4.49 L (4.70-6.10) M/uL Hgb 14.3 (14.0-18.0) g/dl Hct 41.4 L (42.0-52.0) % MCV 92.2 (80.0-100.0) fL MCH 31.8 (25.0-34.0) pg MCHC 34.5 (32.0-36.0) g/dL RDW Std Deviation 45.1 (36.4-46.3) fL RDW Coeff of [place] 13.2 (11.5-14.5) % Plt Count 251 (130-400) K/uL MPV 9.6 (9.4-12.4) fL Immature Gran % (Auto) 0.5 % Neut % (Auto) 47.6 % Lymph % (Auto) 29.0 % [place] % (Auto) 13.1 % Eos % (Auto) 8.7 % Baso % (Auto) 1.1 % Neut # (Auto) 2.62 (1.40-6.50) K/uL Lymph # (Auto) 1.60 (1.2-3.4) K/uL [place] # (Auto) 0.72 H (0.11-0.59) K/uL Eos # (Auto) 0.48 (0-0.50) K/uL Baso # (Auto) 0.06 (0-0.2) K/uL Immature Gran # (Auto) 0.03 (0.01-0.20) K/uL PT (9.0-12.0) Seconds INR (0.9-1.1) APTT (21.0-31.0) Seconds PTT Ratio Sodium (136-145) mmol/L Potassium (3.5-5.1) mmol/L Chloride (98-107) mmol/L Carbon Dioxide (21-32) mmol/L Anion Gap (3-11) BUN (6-23) mg/dl Creatinine (0.6-1.4) mg/dl Est Cr Clr Drug Dosing ml/min Est GFR ( Amer) ml/min Est GFR (Non-Af Amer) ml/min BUN/Creatinine Ratio (10-20) Glucose (70-99(Fasting)) mg/dl Calcium (8.6-10.3) mg/dl Total Bilirubin (0.2-1.0) mg/dl AST (13-39) U/L ALT (7-52) U/L Alkaline Phosphatase (34-104) U/L Troponin I High Sens (0-20) pg/ml Total Protein (6.0-8.3) gm/dl Albumin (3.4-5.0) gm/dl Globulin (2.5-4.0) gm/dl Albumin/Globulin Ratio (0.9-2) Lipase (11-82) U/L SARS-CoV-2, RNA, NAAT (NEGATIVE) Diagnostic Findings ABDOMINAL ULTRASOUND, RIGHT UPPER QUADRANT HISTORY: epigastric pain, noted gallstone in neck on CT. COMPARISON: CT of the abdomen and pelvis performed earlier today. FINDINGS: Liver is sonographically normal. There is no biliary ductal dilatation. There is a 1.8 cm nonmobile stone within the gallbladder neck. The gallbladder wall is mildly thickened. No sonographic Osborne sign was elicited. There is no pericholecystic fluid. Pancreas is unremarkable by sonography. There is no right hydronephrosis. IMPRESSION: 1. Cholelithiasis with mild gallbladder wall thickening. No sonographic Osborne sign. The findings are equivocal for acute cholecystitis. A nuclear medicine hepatobiliary study could be performed. 2. No biliary ductal dilatation.
[2023-01-16] MEDS: SODIUM CHLORIDE 0.9% 1000ML 1,000 ML IV SCH (12:08)
[2023-01-16] MEDS: PIPERACILLIN/TAZOBACTAM 4.5 GM in DEXTROSE 5% 100 ML IV SCH ×2 (15:16→21:51)
[2023-01-16] MEDS: GABAPENTIN 600 MG TAB PO SCH ×2 (15:57→21:48)
[2023-01-16] MEDS: buPROPion SR 100 MG TABCR PO SCH (20:30)
[2023-01-16] MEDS ORDERED: CETIRIZINE HCL 10 MG TABLET PO SCH (21:00)
[2023-01-16] MEDS ORDERED: ATORVASTATIN 20 MG TAB PO SCH (21:00)
[2023-01-16] MEDS ORDERED: MONTELUKAST SODIUM 10 MG TABLET PO SCH (21:00)
[2023-01-16] MEDS ORDERED: ONDANSETRON INJ 2 MG/ML 2 ML VIAL IV PRN (21:49)
[2023-01-17] MEDS: SODIUM CHLORIDE 0.9% 1000ML 1,000 ML IV SCH (00:37)
[2023-01-17] MEDS: PIPERACILLIN/TAZOBACTAM 4.5 GM in DEXTROSE 5% 100 ML IV SCH (05:23)
[2023-01-17] MEDS ORDERED: GABAPENTIN 600 MG TAB PO SCH (05:45)
[2023-01-17 08:05] LABS: Basophils # (auto) 0.04 K/uL (0-0.2); Basophils % (auto) 0.8 %; Eosinophils # (auto) 0.35 K/uL (0-0.50); Eosinophils % (auto) 6.8 %; Hematocrit (blood only) 37.4 % (42.0-52.0); Hemoglobin 13.1 g/dl (14.0-18.0); Immature Granulocytes # (auto) 0.02 K/uL (0.01-0.20); Immature Granulocytes % (auto) 0.4 %; Lymphocytes # (auto) 1.57 K/uL (1.2-3.4); Lymphocytes % (auto) 30.7 %; Mean Corpuscular Hemoglobin 31.6 pg (25.0-34.0); Mean Corpuscular Volume 90.3 fL (80.0-100.0); Mean Platelet Volume 9.3 fL (9.4-12.4); Monocytes # (auto) 0.57 K/uL (0.11-0.59); Monocytes % (auto) 11.2 %; Neutrophils # (auto) 2.56 K/uL (1.40-6.50); Neutrophils % (auto) 50.1 %; Platelet Count 230 K/uL (130-400); RDW Coefficient of Variation 13.3 % (11.5-14.5); Red Blood Count 4.14 M/uL (4.70-6.10); White Blood Count 5.11 K/ul (4.8-10.8)
[2023-01-17] MEDS: buPROPion SR 100 MG TABCR PO SCH (08:23)
[2023-01-17 08:32] LABS: INR 2.4 (0.9-1.1); Prothrombin Time 25.1 Seconds (9.0-12.0)
[2023-01-17 08:58] LABS: Albumin Globulin Ratio 1.3 (0.9-2); Albumin Level 3.5 gm/dl (3.4-5.0); Bilirubin,Total 0.8 mg/dl (0.2-1.0); Calcium 8.6 mg/dl (8.6-10.3); Est GFR (African American) 80.3 ml/min; Est GFR (Non-African American) 69.3 ml/min; Globulin 2.6 gm/dl (2.5-4.0); Potassium 3.9 mmol/L (3.5-5.1); Total Protein 6.1 gm/dl (6.0-8.3)
[2023-01-17] MEDS ORDERED: THIAMINE HCL 100 MG TAB PO SCH (09:00)
[2023-01-17] MEDS ORDERED: modafiniL 100 MG TAB PO SCH (09:00)
[2023-01-17] MEDS ORDERED: amLODIPine BESYLATE 5 MG TAB PO SCH (09:00)
[2023-01-17] MEDS ORDERED: PANTOprazole 40 MG TAB PO SCH (09:00)
--- NOTE | 2023-01-17 18:05 | Discharge Summary ---
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 States that he typically follows with [facility] but established in October with Terri Flynn and decided to switch back to [facility]. States that he woke up this morning with significant pain in the epigastric and RUQ region this AM. Describes the pain as nonradiating, crampy. Associated with nausea but no vomitting. Has not eaten anything this AM but last meal was last night. 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 Last dose was the 5mg at 9PM last night. Admits to drinking daily gin, 2oz for the last 10 years or so. States he knew he had gallstones as it was brought up at a pcp visit 7 years ago and he states they were surprised that the gallbladder had not been taken out yet. Declining pain meds in the ED at this time. Admission Exam Per Admitting Provider General: Alert, oriented. No acute distress, laying in bed Skin: No noted rashes or bruises Psych: Appropriate mood and affect Neuro: No gross deficits HEENT: NC/AT Chest: tender to palpation in the epigastrium CV: RRR, Normal s1, s2. No murmurs appreciated Resp: Breath sounds clear bilaterally, no increased effort of breathing. Abdomen: BS+. Soft, tender in epigastrium and RUQ. Extremities: No edema in lower extremities bilaterally. Principal Diagnosis Acute cholecystitis Discharge Exam Constitutional WD/WN, vitals as above Respiratory normal respiratory effort, lungs clear to auscultation Cardiovascular Rate/Rhythm: regular rate and regular rhythm Vessels: normal peripheral pulses Extremities: no edema Gastrointestinal (Abdomen) normal bowel sounds, soft, nontender, no hepatosplenomegaly Musculoskeletal no cyanosis or clubbing, extremities motor strength 5/5 Skin no rashes, warm and dry Neurologic no focal motor deficits Psychiatric A+Ox3, euthymic affect Discharge Data Allergies Allergy/AdvReac Type Severity Reaction Status Date / Time shellfish derived Allergy Unknown SWELLS UP Verified 10/27/22 13:42 Consultations 01/16/23 09:35 Consult General Surgery Routine Ordered Studies Laboratory Results WBC 5.11 K/ul (4.8-10.8) 01/17/23 07:43 RBC 4.14 M/uL (4.70-6.10) L 01/17/23 07:43 Hgb 13.1 g/dl (14.0-18.0) L 01/17/23 07:43 Hct 37.4 % (42.0-52.0) L 01/17/23 07:43 MCV 90.3 fL (80.0-100.0) 01/17/23 07:43 MCH 31.6 pg (25.0-34.0) 01/17/23 07:43 MCHC 35.0 g/dL (32.0-36.0) 01/17/23 07:43 RDW Std Deviation 44.0 fL (36.4-46.3) 01/17/23 07:43 RDW Coeff of [place] 13.3 % (11.5-14.5) 01/17/23 07:43 Plt Count 230 K/uL (130-400) 01/17/23 07:43 MPV 9.3 fL (9.4-12.4) L 01/17/23 07:43 Immature Gran % (Auto) 0.4 % 01/17/23 07:43 Neut % (Auto) 50.1 % 01/17/23 07:43 Lymph % (Auto) 30.7 % 01/17/23 07:43 [place] % (Auto) 11.2 % 01/17/23 07:43 Eos % (Auto) 6.8 % 01/17/23 07:43 Baso % (Auto) 0.8 % 01/17/23 07:43 Neut # (Auto) 2.56 K/uL (1.40-6.50) 01/17/23 07:43 Lymph # (Auto) 1.57 K/uL (1.2-3.4) 01/17/23 07:43 [place] # (Auto) 0.57 K/uL (0.11-0.59) 01/17/23 07:43 Eos # (Auto) 0.35 K/uL (0-0.50) 01/17/23 07:43 Baso # (Auto) 0.04 K/uL (0-0.2) 01/17/23 07:43 Immature Gran # (Auto) 0.02 K/uL (0.01-0.20) 01/17/23 07:43 PT 25.1 Seconds (9.0-12.0) H 01/17/23 07:43 INR 2.4 (0.9-1.1) H 01/17/23 07:43 APTT 35.8 Seconds (21.0-31.0) H 01/16/23 08:07 PTT Ratio 1.3 01/16/23 08:07 Sodium 140 mmol/L (136-145) 01/17/23 07:43 Potassium 3.9 mmol/L (3.5-5.1) 01/17/23 07:43 Chloride 109 mmol/L (98-107) H 01/17/23 07:43 Carbon Dioxide 27 mmol/L (21-32) 01/17/23 07:43 Anion Gap 4 (3-11) 01/17/23 07:43 BUN 10 mg/dl (6-23) 01/17/23 07:43 Creatinine 1.11 mg/dl (0.6-1.4) 01/17/23 07:43 Est Cr Clr Drug Dosing 82.0 ml/min 01/17/23 07:43 Est GFR ( Amer) 80.3 ml/min 01/17/23 07:43 Est GFR (Non-Af Amer) 69.3 ml/min 01/17/23 07:43 BUN/Creatinine Ratio 9.0 (10-20) L 01/17/23 07:43 Glucose 99 mg/dl (70-99(Fasting)) 01/17/23 07:43 Calcium 8.6 mg/dl (8.6-10.3) 01/17/23 07:43 Total Bilirubin 0.8 mg/dl (0.2-1.0) D 01/17/23 07:43 AST 18 U/L (13-39) 01/17/23 07:43 ALT 16 U/L (7-52) 01/17/23 07:43 Alkaline Phosphatase 82 U/L (34-104) 01/17/23 07:43 Troponin I High Sens 5.7 pg/ml (0-20) 01/16/23 08:07 Total Protein 6.1 gm/dl (6.0-8.3) 01/17/23 07:43 Albumin 3.5 gm/dl (3.4-5.0) 01/17/23 07:43 Globulin 2.6 gm/dl (2.5-4.0) 01/17/23 07:43 Albumin/Globulin Ratio 1.3 (0.9-2) 01/17/23 07:43 Lipase 32 U/L (11-82) 01/16/23 08:07 SARS-CoV-2, RNA, NAAT NEGATIVE (NEGATIVE) 01/16/23 08:07 Impressions Chest X-Ray 01/16/23 07:48 XR chest 1V portable CLINICAL HISTORY: Chest pain, nonspecific COMPARISON STUDY: Chest radiograph and chest CT June 23, 2019. FINDINGS: Lung volumes are normal. Lungs are clear. There is no pneumothorax or pleural effusion. Cardiac size is normal. Mediastinal contours are normal. There is no evidence for pulmonary edema. IMPRESSION: No acute cardiopulmonary findings. ACT 112: Negative or not required by law. Electronically signed by: Chato Tubbs M.D. 01/16/2023 7:58 AM Abdomen/Pelvis CT 01/16/23 07:59 CT OF THE ABDOMEN AND PELVIS WITHOUT CONTRAST CLINICAL HISTORY: Abdominal pain. COMPARISON STUDY: No previous studies for comparison. TECHNIQUE: Axial images of the abdomen and pelvis were obtained without IV contrast. Images were reviewed in the axial, sagittal, and coronal planes. Automated exposure control was utilized for the study. A dose lowering technique was utilized adhering to the principles of ALARA. FINDINGS: Lung bases are unremarkable. No pneumatosis, free air or portal venous gas is present. No renal, ureteral or bladder calculi are present. There is no hydronephrosis or hydroureter. Evaluation of the remainder of the abdomen and pelvis is suboptimal on this unenhanced exam. There is a 2.5 cm gallstone within the gallbladder neck. There is minimal pericholecystic stranding. Gallbladder is slightly distended when compared to chest CT of June 23, 2019. Unenhanced images of the spleen, adrenal glands, kidneys and pancreas are unremarkable. Is no evidence for a bowel obstruction. The appendix is normal. There is no lymphadenopathy. There is colonic diverticulosis without evidence for acute diverticulitis. IMPRESSION: 1. Gallstone within the gallbladder neck. Minimal pericholecystic stranding with mild gallbladder distention. The findings raise the possibility of acute cholecystitis. Right upper quadrant ultrasound could be obtained for further evaluation. 2. No urinary calculi or hydronephrosis. 3. No bowel obstruction. 4. Colonic diverticulosis. No evidence for acute diverticulitis. ACT 112: Negative or not required by law. Electronically signed by: Chato Tubbs M.D. 01/16/2023 8:34 AM Abdomen Ultrasound 01/16/23 09:55 ABDOMINAL ULTRASOUND, RIGHT UPPER QUADRANT HISTORY: epigastric pain, noted gallstone in neck on CT. COMPARISON: CT of the abdomen and pelvis performed earlier today. FINDINGS: Liver is sonographically normal. There is no biliary ductal dilatation. There is a 1.8 cm nonmobile stone within the gallbladder neck. The gallbladder wall is mildly thickened. No sonographic Osborne sign was elicited. There is no pericholecystic fluid. Pancreas is unremarkable by sonography. There is no right hydronephrosis. IMPRESSION: 1. Cholelithiasis with mild gallbladder wall thickening. No sonographic Osborne sign. The findings are equivocal for acute cholecystitis. A nuclear medicine hepatobiliary study could be performed. 2. No biliary ductal dilatation. ACT 112: Negative or not required by law. Electronically signed by: Chato Tubbs M.D. 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 Acute cholecystitis CT ABD/pelvis - Gallstone within the gallbladder neck. Minimal pericholecystic stranding with mild gallbladder distention. The findings raise the possibility of acute cholecystitis. RUQ US - Cholelithiasis with mild gallbladder wall thickening. No sonographic Osborne sign. The findings are equivocal for acute cholecystitis. Afebrile, no leukocytosis, LFTs essentially normal (alk phos slightly elevated at 110) Started on IV Zosyn Blood cultures NGTD Evaluated by general surgery, recommending possible outpatient elective cholecystectomy in 4 to 6 weeks. Will discharge on PO Augmentin for an additional 7 days. Hx of DVT/PE, MTHFR Gene Mutation On Coumadin, INR 2.4 Resume Coumadin per home dosing. Coumadin clinic notified of admission. Chronic Alcohol Use Pt states that he drinks 2 oz of Gin daily, for the past 10+ years. AWSS protocol for withdrawal monitoring, prophylactic gabapentin, as needed Ativan Continue home thiamine No signs of withdrawal during hospitalization ADHD Continue home modafinil HTN BP controlled, continue home amlodipine HLD Continue home statin Anxiety/Depression Continue home Wellbutrin Asthma/Allergies Continue home singulair, inhaler and cetirizine ED Holding home sildenafil GERD continue home ppi Total Time Total Time Spent Total Time Spent (In Minutes): 40 Discharge Plan Discharge Items Patient Disposition: Home - Self-Care Reason For Visit: Abdominal Pain Discharge Diagnosis: Cholecystitis (gallbladder infection) Activity: Resume your previous activity Non-emergency contact: Primary Care Provider and Surgeon Call non-emergency contact if: you have any medication questions, your symptoms worsen, your pain is not controlled and you have a fever Follow-up/Referrals: Osei Figueroa MD [Physician] - 02/09/23 2:15 pm (Date & Time 02/09/2023 2:15 PM Provider Osei Figueroa MD Department General Surgery, [facility] ) Puma Coburn MD [Primary Care Provider] - (Date & Time 01/25/2023 11:00 AM Provider Puma Coburn MD Department General Internal Medicine [facility] ) Diet: Low Fat Addtl Attending Provider Instructions: You came to the hospital for evaluation of abdominal pain and were found to have cholecystitis (gallbladder infection). You were treated with IV antibiotics and will be discharged on antibiotics for an additional 7 days. Take Augmentin 1 tab twice daily for the next 7 days. Follow-up with Terri Flynn general surgery for possible cholecystectomy (gallbladder removal surgery). Follow a low-fat diet. Continue to take other medications as prescribed. Continue Coumadin dosing as per prior to hospitalization. The Coumadin clinic has been notified of your hospitalization. A follow-up appointment has been made for you with your PCP. It was a pleasure taking care of you. If you need to reach a member of the [facility] hospitalist to Terri Flynn, please call [phone]. JOSEPH Shirley Pending Studies at Discharge: No Stand-Alone Forms: My Terri Flynn [facility], Smoking Cessation Medications and DC Order Prescriptions: New amoxicillin-pot clavulanate 875-125 mg tablet 1 tab PO BID Qty: 14 0RF Continued amlodipine [Norvasc] 5 mg tablet 5 mg PO DAILY modafinil 200 mg tablet 200 mg PO DAILY atorvastatin 20 mg Tablet 20 mg PO PM montelukast 10 mg Tablet 10 mg PO PM albuterol sulfate 90 mcg/actuation Aerosol Powdr Breath Activated 90 mcg INHALATION Q6H PRN (Reason: Shortness Of Breath) cetirizine 10 mg Tablet 10 mg PO QPM esomeprazole magnesium 40 mg Capsule,Delayed Release(Dr/Ec) 40 mg PO QAM bupropion HCl 200 mg Tablet Sustained-Release 12 Hr 200 mg PO BID multivitamin Tablet 1 tab PO QAM sildenafil 50 mg Tablet 50 mg PO DAILY PRN (Reason: Erectile Dysfunction) thiamine HCl (vitamin B1) 100 mg Tablet 100 mg PO QAM warfarin 5 mg tablet 5 mg PO DAILY Rx Instructions: Pt is to take this dose on Fridays Discharge Orders: Discharge Order (Routine); Ordered 01/17/23 Ordered By: Ada Martinez/Other Patient Handouts: ED Diet, Low Fat Admission Data Admit Date/Time: 01/16/23 09:36 Attending Provider: Lui Jennings Admit Provider: Nikia Barlow Primary Care Provider: Puma Coburn Other Providers: Nikia Barlow ; Osei Figueroa Other Interventions: Discharge Summary Assessment (RN) Last Done: 01/17/23 13:12 Supervising Physician Co-Signing Physician Notes Patient seen and examined independently. Discussed with above provider. Patient denies any abdominal pain. Surgery's recommendation noted; surgery to follow-up with him for elective cholecystectomy in 4 to 6 weeks. Discharged on oral antibiotics. Follow-up with PCP
[2023-01-18] MEDS ORDERED: GABAPENTIN 600 MG TAB PO SCH (09:45)
[2023-01-19] MEDS ORDERED: GABAPENTIN 600 MG TAB PO SCH (21:45)
== END 2023-01-17 13:43 | disposition home or self-care (01) | DRG 445 ==
LOC: ED 07:40 → SUATTDRO 09:36 → 3W 09:36 → INTOOBSV 09:36 → 3W 11:06

== ENCOUNTER 2023-02-27 23:34 | Inpatient (IN) ==
[2023-02-27] MEDS ORDERED: ONDANSETRON INJ 2 MG/ML 2 ML VIAL IV STA (23:57)
[2023-02-27] MEDS ORDERED: ONDANSETRON INJ 2 MG/ML 2 ML VIAL ONE (23:59)
[2023-02-28 00:14] LABS: Basophils # (auto) 0.06 K/uL (0.00-0.20); Basophils % (auto) 0.9 %; Eosinophils # (auto) 0.04 K/uL (0.00-0.50); Eosinophils % (auto) 0.6 %; Hematocrit (blood only) 46.4 % (42.0-52.0); Hemoglobin 15.6 g/dl (14.0-18.0); Immature Granulocytes # (auto) 0.03 K/uL (0.01-0.20); Immature Granulocytes % (auto) 0.4 %; Lymphocytes # (auto) 1.59 K/uL (1.20-3.40); Lymphocytes % (auto) 23.7 %; Mean Corpuscular Hgb Conc 33.6 g/dL (32.0-36.0); Mean Corpuscular Volume 92.2 fL (80.0-100.0); Mean Platelet Volume 9.6 fL (9.4-12.4); Monocytes # (auto) 0.96 K/uL (0.11-0.59); Monocytes % (auto) 14.3 %; Neutrophils # (auto) 4.03 K/uL (1.40-6.50); Neutrophils % (auto) 60.1 %; Platelet Count 242 K/uL (130-400); RDW Coefficient of Variation 13.9 % (11.5-14.5); RDW Standard Deviation 46.8 fL (36.4-46.3); Red Blood Count 5.03 M/uL (4.70-6.10); White Blood Count 6.71 K/ul (4.8-10.8)
[2023-02-28 00:35] LABS: Albumin Globulin Ratio 1.5 (0.9-2); Albumin Level 4.5 gm/dl (3.4-5.0); BUN Creatinine Ratio 13.8 (10-20); Bilirubin,Total 0.4 mg/dl (0.2-1.0); Calcium 9.7 mg/dl (8.6-10.3); Creatinine Clr Calc Pharmacy 68.3 ml/min; Est GFR (African American) 66.4 ml/min; Est GFR (Non-African American) 57.3 ml/min; Potassium 3.7 mmol/L (3.5-5.1); Total Protein 7.5 gm/dl (6.0-8.3)
[2023-02-28 00:42] LABS: Troponin I High Sensitivity 11.9 pg/ml (0-20)
[2023-02-28] MEDS ORDERED: SODIUM CHLORIDE 0.9% 1,000 ML IV ONE (02:13)
--- NOTE | 2023-02-28 02:23 | Emergency Department Note ---
ED Provider Note History of Present Illness Chief Complaint: Respiratory Problems Stated Complaint: CHEST PAIN, SOB Time Seen by Provider: 02/28/23 01:53 Source: patient Mode of arrival: ambulatory Limitations: no limitations This patient is a 67-year-old male who presents to the emergency department for evaluation of symptoms of COVID-19. Patient states that he initially developed symptoms 2 days ago and had a positive home test at that time. Patient has had a fevers, cough, shortness of breath, nausea, headaches and sore throat. He reports cough has been productive of clear mucus. He has had some shortness of breath as well as right-sided chest pain. Patient reports a history of asthma. He does report a history of pulmonary embolism as well as a genetic condition that causes him to be hypercoagulable. He does take warfarin daily. Patient is up-to-date on COVID-19 vaccinations. He denies any vomiting or abdominal pain. Home Medications Medication Instructions Recorded Confirmed Type albuterol sulfate 90 mcg/actuation 2 puff inhalation Q4H PRN 02/28/23 02/28/23 History aerosol inhaler Shortness Of Breath Or Wheezing amlodipine 5 mg tablet 5 mg PO DAILY 02/28/23 02/28/23 History atorvastatin 20 mg tablet 20 mg PO DAILY 02/28/23 02/28/23 History bupropion HCl 200 mg tablet,12 hr 200 mg PO BID 02/28/23 02/28/23 History sustained-release cetirizine 10 mg tablet 10 mg PO DAILY 02/28/23 02/28/23 History esomeprazole magnesium 40 mg 40 mg PO DAILY 02/28/23 02/28/23 History capsule,delayed release fluticasone propionate 44 2 puff inhalation BID 02/28/23 02/28/23 History mcg/actuation HFA aerosol inhaler (Flovent HFA) modafinil 200 mg tablet 200 mg PO DAILY 02/28/23 02/28/23 History mometasone 50 mcg/actuation nasal 2 spray intranasal DAILY 02/28/23 02/28/23 History spray montelukast 10 mg tablet 10 mg PO HS 02/28/23 02/28/23 History warfarin 5 mg tablet 5 mg PO DAILY 02/28/23 02/28/23 History Allergies Allergy/AdvReac Type Severity Reaction Status Date / Time shellfish derived Allergy Unknown SWELLS UP Verified 02/07/23 05:59 Past Med/Surg History Medical History Anxiety and depression Asthma daily and prn inh Excessive sleepiness Gene mutation mthfr and prothrombin GERD (gastroesophageal reflux disease) High cholesterol Hx of deep venous thrombosis 2011 right - post fx of ankle Hx pulmonary embolism 12/2011 Hypertension Ulcerative colitis hx Surgical History History of ankle surgery left History of colonoscopy History of esophagogastroduodenoscopy (EGD) History of tonsillectomy and adenoidectomy S/P shoulder surgery rt. Family History Father FHx: cancer Lung cancer Myocardial infarction Mother FHx: cancer Stroke Dementia Grandfather (Paternal) Colorectal cancer Uncle Colorectal cancer Heart disease Grandmother (Maternal) Stroke Denies family history of Ovarian cancer Prostate cancer Breast cancer Social History Smoking Status: Former smoker Tobacco Type: Cigarettes Age Started Using Tobacco: 18; Age Quit Using Tobacco: 39; packs per day: 1; Second Hand Exposure: No; Do You Dip or Chew Tobacco: No; Hx Alcohol Use: Yes Alcohol type: beer, wine and hard liquor Alcohol Intake Frequency: 4 or More x per/Week Hx Substance Use: No Preferred Language: [place]an Communication Ability: Effective Visual Impairment: No Limitations Hearing Ability: Normal Nursing Unit Clerk Required: No Beliefs That Will Affect Care: None Current Living Situation: Spouse Feels Safe at Home: Yes Assistive Devices: Contacts and Glasses Physical Exam Vital Signs Vital Signs - 24 hr 02/27/23 23:43 02/27/23 23:45 02/28/23 01:34 Temperature 36.5 C Temperature Source Temporal Artery Scan Pulse Rate 89 Pulse Rate [Apical] Pulse Rate from SpO2 Sensor Pulse Rhythm [Apical] Pulse Strength [Apical] Respiratory Rate 18 Respiratory Effort / Characteristics Non-Labored Spontaneous Non-Labored Spontaneous Respiratory Depth Normal Respiratory Pattern Blood Pressure 121/75 Blood Pressure [Left Arm] Blood Pressure Mean 90 Blood Pressure Mean [Left Arm] Blood Pressure Position Sitting Blood Pressure Position [Left Arm] Pulse Oximetry 97 93 Oxygen Delivery Method Room Air Room Air Oxygen Flow Rate Sepsis Recent Fever Within 48 Hours Yes Sepsis New/Unexplained Change in Mental Status N/A Sepsis Action Taken by Nursing No Action Required 02/28/23 01:34 02/28/23 02:10 02/28/23 02:22 Temperature 36.5 C Temperature Source Oral Pulse Rate 87 Pulse Rate [Apical] 88 Pulse Rate from SpO2 Sensor 87 Pulse Rhythm [Apical] Regular Pulse Strength [Apical] Normal Respiratory Rate 17 20 Respiratory Effort / Characteristics Non-Labored Spontaneous Respiratory Depth Normal Respiratory Pattern Regular Blood Pressure 128/71 Blood Pressure [Left Arm] Blood Pressure Mean 80 Blood Pressure Mean [Left Arm] Blood Pressure Position Blood Pressure Position [Left Arm] Pulse Oximetry 92 91 Oxygen Delivery Method Room Air Room Air Oxygen Flow Rate Sepsis Recent Fever Within 48 Hours Sepsis New/Unexplained Change in Mental Status Sepsis Action Taken by Nursing 02/28/23 02:22 02/28/23 02:30 02/28/23 02:30 Temperature Temperature Source Pulse Rate 85 82 Pulse Rate [Apical] Pulse Rate from SpO2 Sensor 86 79 Pulse Rhythm [Apical] Pulse Strength [Apical] Respiratory Rate 15 22 Respiratory Effort / Characteristics Respiratory Depth Respiratory Pattern Blood Pressure 133/76 Blood Pressure [Left Arm] Blood Pressure Mean 97 Blood Pressure Mean [Left Arm] Blood Pressure Position Blood Pressure Position [Left Arm] Pulse Oximetry 87 L 95 Oxygen Delivery Method Room Air Nasal Cannula Oxygen Flow Rate 2 Sepsis Recent Fever Within 48 Hours Sepsis New/Unexplained Change in Mental Status Sepsis Action Taken by Nursing 02/28/23 03:30 02/28/23 04:55 Temperature 37.9 C H Temperature Source Oral Pulse Rate 78 Pulse Rate [Apical] 81 Pulse Rate from SpO2 Sensor Pulse Rhythm [Apical] Pulse Strength [Apical] Respiratory Rate 16 Respiratory Effort / Characteristics Non-Labored Spontaneous Respiratory Depth Normal Respiratory Pattern Regular Blood Pressure Blood Pressure [Left Arm] 119/63 Blood Pressure Mean Blood Pressure Mean [Left Arm] 81 Blood Pressure Position Blood Pressure Position [Left Arm] Semi-fowlers Pulse Oximetry 94 Oxygen Delivery Method Nasal Cannula Oxygen Flow Rate 2 Sepsis Recent Fever Within 48 Hours Sepsis New/Unexplained Change in Mental Status Sepsis Action Taken by Nursing VITALS: Vitals are noted on the nurse's note and reviewed by myself. GENERAL: This is a 67-year-old male, in no acute distress, sitting up in bed. SKIN: The skin was without rashes. EARS: External auditory canals clear, tympanic membranes pearly garrison without e rythema or effusion bilaterally. EYES: Pupils equal round and reactive to light and accommodation. NOSE: Patent, turbinates without inflammation or discharge. No sinus tenderness. MOUTH: Mucous membranes moist. Tonsils are not enlarged. Pharynx without erythema or exudate. NECK: Supple without nuchal rigidity. No lymphadenopathy. HEART: Regular rate and rhythm without murmurs gallops or rubs. LUNGS: Clear to auscultation bilaterally without wheezes, rales or rhonchi. No retractions or accessory muscle use. ABDOMEN: Positive bowel sounds x 4. Soft, nontender to palpation. NEURO: Patient was alert and oriented to person place and time. Course Administered Medications Discontinued Medications Acetaminophen (Acetaminophen 500 Mg Tab) 1,000 mg PO NOW STA Stop: 02/28/23 04:17 Last Admin: 02/28/23 04:24 Dose: 1,000 mg Documented By: RONALD Dexamethasone Sodium Phosphate (DexamethasonePf 10 Mg/Ml Vial) 6 mg IV NOW ONE Stop: 02/28/23 03:36 Last Admin: 02/28/23 03:57 Dose: 6 mg Documented By: RONALD Sodium Chloride (Nss 1000ml) 1,000 mls @ 999 mls/hr IV .Q1H1M ONE Stop: 02/28/23 03:13 Last Infusion: 02/28/23 03:20 Dose: 0 mls/hr Documented By: Admin: 02/28/23 02:19 Dose: 999 mls/hr Documented By: EMILY Ondansetron HCl (Ondansetron Inj 2 Mg/Ml 2 Ml Vial) 4 mg IV NOW STA Stop: 02/27/23 23:58 Last Admin: 02/28/23 00:00 Dose: 4 mg Documented By: LIZETTE Ondansetron HCl (Ondansetron Inj 2 Mg/Ml 2 Ml Vial) Confirm Administered Dose 4 mg .ROUTE .STK-MED ONE Stop: 02/28/23 00:00 Last Admin: 02/28/23 02:14 Dose: Not Given Documented By: EMILY Medical Decision Making Differential Diagnosis Reactive airway disease, pneumonia, pneumothorax, COPD, CHF, infections, cardiac ischemia, pulmonary embolism, musculoskeletal, gastrointestinal, as well as other pathologies. Home Medications was personally reviewed by me Laboratory Data Attestation: I reviewed the patient's lab results. 02/27/23 23:53 09/03/23 23:53 Lab Results 02/27/23 02/27/23 02/27/23 Range/Units 23:53 23:53 23:53 WBC 6.71 (4.8-10.8) K/ul RBC 5.03 (4.70-6.10) M/uL Hgb 15.6 (14.0-18.0) g/dl Hct 46.4 (42.0-52.0) % MCV 92.2 (80.0-100.0) fL MCH 31.0 (25.0-34.0) pg MCHC 33.6 (32.0-36.0) g/dL RDW Std Deviation 46.8 H (36.4-46.3) fL RDW Coeff of [place] 13.9 (11.5-14.5) % Plt Count 242 (130-400) K/uL MPV 9.6 (9.4-12.4) fL Immature Gran % (Auto) 0.4 % Neut % (Auto) 60.1 % Lymph % (Auto) 23.7 % [place] % (Auto) 14.3 % Eos % (Auto) 0.6 % Baso % (Auto) 0.9 % Neut # (Auto) 4.03 (1.40-6.50) K/uL Lymph # (Auto) 1.59 (1.20-3.40) K/uL [place] # (Auto) 0.96 H (0.11-0.59) K/uL Eos # (Auto) 0.04 (0.00-0.50) K/uL Baso # (Auto) 0.06 (0.00-0.20) K/uL Immature Gran # (Auto) 0.03 (0.01-0.20) K/uL PT Cancelled INR Cancelled APTT Cancelled PTT Ratio Cancelled Sodium 140 (136-145) mmol/L Potassium 3.7 (3.5-5.1) mmol/L Chloride 100 (98-107) mmol/L Carbon Dioxide 29 (21-32) mmol/L Anion Gap 11 (3-11) BUN 18 (6-23) mg/dl Creatinine 1.30 (0.6-1.4) mg/dl Est Cr Clr Drug Dosing 68.3 ml/min Est GFR ( Amer) 66.4 ml/min Est GFR (Non-Af Amer) 57.3 ml/min BUN/Creatinine Ratio 13.8 (10-20) Glucose 96 (70-99(Fasting)) mg/dl Calcium 9.7 (8.6-10.3) mg/dl Total Bilirubin 0.4 (0.2-1.0) mg/dl AST 34 (13-39) U/L ALT 32 (7-52) U/L Alkaline Phosphatase 136 H (34-104) U/L Troponin I High Sens 11.9 (0-20) pg/ml Total Protein 7.5 (6.0-8.3) gm/dl Albumin 4.5 (3.4-5.0) gm/dl Globulin 3.0 (2.5-4.0) gm/dl Albumin/Globulin Ratio 1.5 (0.9-2) SARS-CoV-2 (PCR) (Negative) Influenza Type A (PCR) (Neg) Influenza Type B (PCR) (Neg) RSV (RT-PCR) (Neg) 02/28/23 02/28/23 02/28/23 Range/Units 02:02 02:24 03:53 WBC (4.8-10.8) K/ul RBC (4.70-6.10) M/uL Hgb (14.0-18.0) g/dl Hct (42.0-52.0) % MCV (80.0-100.0) fL MCH (25.0-34.0) pg MCHC (32.0-36.0) g/dL RDW Std Deviation (36.4-46.3) fL RDW Coeff of [place] (11.5-14.5) % Plt Count (130-400) K/uL MPV (9.4-12.4) fL Immature Gran % (Auto) % Neut % (Auto) % Lymph % (Auto) % [place] % (Auto) % Eos % (Auto) % Baso % (Auto) % Neut # (Auto) (1.40-6.50) K/uL Lymph # (Auto) (1.20-3.40) K/uL [place] # (Auto) (0.11-0.59) K/uL Eos # (Auto) (0.00-0.50) K/uL Baso # (Auto) (0.00-0.20) K/uL Immature Gran # (Auto) (0.01-0.20) K/uL PT 18.5 H INR 1.7 H APTT 35.0 H PTT Ratio 1.2 Sodium (136-145) mmol/L Potassium (3.5-5.1) mmol/L Chloride (98-107) mmol/L Carbon Dioxide (21-32) mmol/L Anion Gap (3-11) BUN (6-23) mg/dl Creatinine (0.6-1.4) mg/dl Est Cr Clr Drug Dosing ml/min Est GFR ( Amer) ml/min Est GFR (Non-Af Amer) ml/min BUN/Creatinine Ratio (10-20) Glucose (70-99(Fasting)) mg/dl Calcium (8.6-10.3) mg/dl Total Bilirubin (0.2-1.0) mg/dl AST (13-39) U/L ALT (7-52) U/L Alkaline Phosphatase (34-104) U/L Troponin I High Sens 10.2 (0-20) pg/ml Total Protein (6.0-8.3) gm/dl Albumin (3.4-5.0) gm/dl Globulin (2.5-4.0) gm/dl Albumin/Globulin Ratio (0.9-2) SARS-CoV-2 (PCR) POSITIVE A* (Negative) Influenza Type A (PCR) Negative (Neg) Influenza Type B (PCR) Negative (Neg) RSV (RT-PCR) Negative (Neg) Imaging Data Attestation: I personally reviewed and interpreted this imaging study as follows: My Impression: CHEST 1 VIEW: No pulmonary consolidation. No pneumothorax. No pulmonary edema. ECG Data Attestation: I personally reviewed and interpreted this ECG as follows: Indication: + SOB/dyspnea Rate (beats per minute): 90 Rhythm: + normal sinus ECG ST segments: + Normal ST segments Change: no significant change MDM Narrative Continuous color television console monitor: Order was placed for continuous color television console monitor. Patient was placed on the color television console monitor. Patient was noted to be in normal sinus rhythm at an initial rate of 95 bpm. The patient is a 67-year-old male who presents today complaining of shortness of breath and worsening symptoms of COVID-19. Labs revealed no leukocytosis, anemia or concerning electrolyte abnormality. COVID-19 test was confirmed to be positive. INR slightly subtherapeutic at 1.7. Chest x-ray without acute disease. Patient was hypoxic with O2 sats of 87% on room air. He was placed on 2 L of oxygen via nasal cannula. He was given 6 mg dexamethasone IV. Due to hypoxia patient will require admission. [facility] Impression COVID-19, Hypoxia Discharge Plan Visit Data Chief Complaint: Respiratory Problems Stated Complaint: CHEST PAIN, SOB ED Provider: Dani Simons ED Midlevel Provider: Sydnie Santiago Discharge Problem: COVID-19, Hypoxia Forms Stand Alone Forms: My [facility] Prescriptions Prescriptions: No Action atorvastatin 20 mg tablet 20 mg PO DAILY cetirizine 10 mg tablet 10 mg PO DAILY amlodipine 5 mg tablet 5 mg PO DAILY modafinil 200 mg tablet 200 mg PO DAILY esomeprazole magnesium 40 mg capsule,delayed release(DR/EC) 40 mg PO DAILY warfarin 5 mg tablet 5 mg PO DAILY fluticasone propionate [Flovent HFA] 44 mcg/actuation HFA aerosol inhaler 2 puff INHALATION BID mometasone 50 mcg/actuation spray,non-aerosol 2 spray INTRANASAL DAILY montelukast 10 mg tablet 10 mg PO HS albuterol sulfate 90 mcg/actuation HFA aerosol inhaler 2 puff INHALATION Q4H PRN (Reason: Shortness Of Breath Or Wheezing) bupropion HCl 200 mg tablet sustained-release 12 hr 200 mg PO BID Referrals Referrals: Puma Coburn MD [Primary Care Provider] -
[2023-02-28 03:16] LABS: INR 1.7 (0.9-1.1); Partial Thromboplastin Ratio 1.2; Prothrombin Time 18.5 Seconds (9.0-12.0)
[2023-02-28] MEDS ORDERED: dexAMETHasone**PF** 10 MG/ML VIAL IV ONE (03:35)
[2023-02-28] MEDS ORDERED: ACETAMINOPHEN 500 MG TAB PO STA (04:16)
[2023-02-28 04:48] LABS: Influenza A virus by PCR Negative (Neg); Influenza B virus by PCR Negative (Neg); RSV by PCR Negative (Neg)
[2023-02-28 05:01] LABS: SARS CoV2 RNA(COVID-19) Ceph POSITIVE (Negative)
--- NOTE | 2023-02-28 05:01 | History & Physical Report ---
Date of Service February 28, 2023 Assessment & Plan (1) Hypoxia: Plan: 67-year-old male with past med significant for MTHFR gene mutation history of DVT and PE, hyperlipidemia, prediabetes, thyroid nodule, mild persistent asthma, allergic rhinitis, right lung nodule, diastolic dysfunction, hypertension, ulcerative colitis, GERD, chronic fatigue syndrome, allergic conjunctivitis, depression, ADHD, presents with shortness of breath since last Tuesday. Home COVID test came back positive. Was saturating 87% on room air in the ER. Hypoxia COVID-positive Asthma exasperation IV remdesivir, IV Decadron Nebs [id number] Continue home inhalers IV fluids COVID precautions History of DVT and PE MTHFR gene mutation On Coumadin. INR 1.7 Closely monitor Prediabetes Monitor blood sugars while on steroids Has a chronic diastolic dysfunction Monitor for volume overload Hypertension Continue amlodipine We will monitor blood pressure Hyperlipidemia On statin GERD Omeprazole Depression Continue home medications DVT prophylaxis on Coumadin INR 1.7. Lovenox until INR therapeutic Disposition med/telemetry Full code History of Present Illness Chief Complaint: Shortness of breath Primary Care Provider: Puma Coburn MD 67-year-old male with past med significant for MTHFR gene mutation history of DVT and PE, hyperlipidemia, prediabetes, thyroid nodule, mild persistent asthma, allergic rhinitis, right lung nodule, diastolic dysfunction, hypertension, ulcerative colitis, GERD, chronic fatigue syndrome, allergic conjunctivitis, depression, ADHD, presents with shortness of breath since last Tuesday. As per patient had fever, headache, runny nose, cough bringing phlegm, severe sore t hroat since last tuesday and as his was having COVID he tested at home last Tuesday and came back positive. Symptoms not getting better. Poor appetite. Feeling short of breath. Came to the ER. Was saturating 87% room air. On 2 L saturating okay. Has right-sided chest pain when he coughs. Vision is okay. Painful swallowing because of sore throat. No diarrhea or constipation. Not micturating much because he is not drinking much. Past medical history as mentioned above Past surgical history right arthroscopy, colonoscopy, dental surgery, drainage of scrotum, EGD with biopsy, vena cava filter placement and removal in 2011 tonsillectomy, Social history . Quit smoking 1994. Smoked 2 packs a day for 20 years. Alcohol once or twice a week. No drug use Family history father had small cell lung cancer, eye problems heart attacks. Mother has allergies colon cancer, colon polyps, hypertension. Uncle has colon cancer. Brother has allergies. Brother has heart disorder Allergies Allergy/AdvReac Type Severity Reaction Status Date / Time shellfish derived Allergy Unknown SWELLS UP Verified 02/07/23 05:59 Home Medications Medication Instructions Recorded Confirmed Type albuterol sulfate 90 mcg/actuation 2 puff inhalation Q4H PRN 02/28/23 02/28/23 History aerosol inhaler Shortness Of Breath Or Wheezing amlodipine 5 mg tablet 5 mg PO DAILY 02/28/23 02/28/23 History atorvastatin 20 mg tablet 20 mg PO DAILY 02/28/23 02/28/23 History bupropion HCl 200 mg tablet,12 hr 200 mg PO BID 02/28/23 02/28/23 History sustained-release cetirizine 10 mg tablet 10 mg PO DAILY 02/28/23 02/28/23 History esomeprazole magnesium 40 mg 40 mg PO DAILY 02/28/23 02/28/23 History capsule,delayed release fluticasone propionate 44 2 puff inhalation BID 02/28/23 02/28/23 History mcg/actuation HFA aerosol inhaler (Flovent HFA) modafinil 200 mg tablet 200 mg PO DAILY 02/28/23 02/28/23 History mometasone 50 mcg/actuation nasal 2 spray intranasal DAILY 02/28/23 02/28/23 History spray montelukast 10 mg tablet 10 mg PO HS 02/28/23 02/28/23 History warfarin 5 mg tablet 5 mg PO DAILY 02/28/23 02/28/23 History Past Med/Surg History Medical History Anxiety and depression Asthma daily and prn inh Excessive sleepiness Gene mutation mthfr and prothrombin GERD (gastroesophageal reflux disease) High cholesterol Hx of deep venous thrombosis 2011 right - post fx of ankle Hx pulmonary embolism 12/2011 Hypertension Ulcerative colitis hx Surgical History History of ankle surgery left History of colonoscopy History of esophagogastroduodenoscopy (EGD) History of tonsillectomy and adenoidectomy S/P shoulder surgery rt. Family History Father FHx: cancer Lung cancer Myocardial infarction Mother FHx: cancer Stroke Dementia Grandfather (Paternal) Colorectal cancer Uncle Colorectal cancer Heart disease Grandmother (Maternal) Stroke Denies family history of Ovarian cancer Prostate cancer Breast cancer Social History Smoking Status: Former smoker Tobacco Type: Cigarettes Age Started Using Tobacco: 18; Age Quit Using Tobacco: 39; packs per day: 1; Second Hand Exposure: No; Do You Dip or Chew Tobacco: No; Tobacco Cessation Education Requested by Patient: No Hx Alcohol Use: Yes Alcohol type: hard liquor Alcohol Intake Frequency: 4 or More x per/Week Hx Substance Use: No Preferred Language: [place]ian Communication Ability: Effective Visual Impairment: No Limitations Hearing Ability: Normal Chocolate Finisher Required: No Beliefs That Will Affect Care: None Current Living Situation: Spouse Other Information That Helps Us Care for You: No Feels Safe at Home: Yes Safety Concerns: Feels Safe At This Time Assistive Devices: Contacts and Glasses Review of Systems Review of Systems: All systems reviewed & are unremarkable except as noted in HPI & below Physical Exam Physical Exam: General- Not in distress. Head- atraumatic Eyes- PERRL. ENT- oropharynx clear Neck- supple, no JVD, Lungs- clear to auscultation no obvious wheezing or crackles. Heart- regular rhythm; no murmur, no gallop. Abdomen- normal bowel sounds, soft, nontender, no distension. Extremities- no pretibial edema, no erythema seen. Neuro- alert, oriented x 3; PERRL, EOMI; no facial palsy; no dysarthria. Skin- warm & dry Results & Data Results & Data Vital Signs (Past 12 Hours) Vital Signs Temp Pulse Pulse Resp BP BP Pulse Ox 02/28/23 04:55 78 02/28/23 03:30 37.9 C H 81 16 119/63 94 02/28/23 02:30 82 22 95 02/28/23 02:30 133/76 02/28/23 02:22 85 15 87 L 02/28/23 02:22 128/71 02/28/23 02:10 87 20 91 02/28/23 01:34 36.5 C 88 17 92 02/28/23 01:34 93 02/27/23 23:43 36.5 C 89 18 121/75 97 O2 Del Method O2 Flow Rate 02/28/23 04:55 02/28/23 03:30 Nasal Cannula 2 02/28/23 02:30 Nasal Cannula 2 02/28/23 02:30 02/28/23 02:22 Room Air 02/28/23 02:22 02/28/23 02:10 Room Air 02/28/23 01:34 Room Air 02/28/23 01:34 Room Air 02/27/23 23:43 Room Air Diagnostic Findings Laboratory Results WBC 6.71 K/ul (4.8-10.8) 02/27/23 23:53 RBC 5.03 M/uL (4.70-6.10) 02/27/23 23:53 Hgb 15.6 g/dl (14.0-18.0) 02/27/23 23:53 Hct 46.4 % (42.0-52.0) 02/27/23 23:53 MCV 92.2 fL (80.0-100.0) 02/27/23 23:53 MCH 31.0 pg (25.0-34.0) 02/27/23 23:53 MCHC 33.6 g/dL (32.0-36.0) 02/27/23 23:53 RDW Std Deviation 46.8 fL (36.4-46.3) H 02/27/23 23:53 RDW Coeff of [place] 13.9 % (11.5-14.5) 02/27/23 23:53 Plt Count 242 K/uL (130-400) 02/27/23 23:53 MPV 9.6 fL (9.4-12.4) 02/27/23 23:53 Immature Gran % (Auto) 0.4 % 02/27/23 23:53 Neut % (Auto) 60.1 % 02/27/23 23:53 Lymph % (Auto) 23.7 % 02/27/23 23:53 [place] % (Auto) 14.3 % 02/27/23 23:53 Eos % (Auto) 0.6 % 02/27/23 23:53 Baso % (Auto) 0.9 % 02/27/23 23:53 Neut # (Auto) 4.03 K/uL (1.40-6.50) 02/27/23 23:53 Lymph # (Auto) 1.59 K/uL (1.20-3.40) 02/27/23 23:53 [place] # (Auto) 0.96 K/uL (0.11-0.59) H 02/27/23 23:53 Eos # (Auto) 0.04 K/uL (0.00-0.50) 02/27/23 23:53 Baso # (Auto) 0.06 K/uL (0.00-0.20) 02/27/23 23:53 Immature Gran # (Auto) 0.03 K/uL (0.01-0.20) 02/27/23 23:53 PT 18.5 Seconds (9.0-12.0) H 02/28/23 02:02 INR 1.7 (0.9-1.1) H 02/28/23 02:02 APTT 35.0 Seconds (21.0-31.0) H 02/28/23 02:02 PTT Ratio 1.2 02/28/23 02:02 Sodium 140 mmol/L (136-145) 02/27/23 23:53 Potassium 3.7 mmol/L (3.5-5.1) 02/27/23 23:53 Chloride 100 mmol/L (98-107) 02/27/23 23:53 Carbon Dioxide 29 mmol/L (21-32) 02/27/23 23:53 Anion Gap 11 (3-11) 02/27/23 23:53 BUN 18 mg/dl (6-23) 02/27/23 23:53 Creatinine 1.30 mg/dl (0.6-1.4) 02/27/23 23:53 Est Cr Clr Drug Dosing 68.3 ml/min 02/27/23 23:53 Est GFR ( Amer) 66.4 ml/min 02/27/23 23:53 Est GFR (Non-Af Amer) 57.3 ml/min 02/27/23 23:53 BUN/Creatinine Ratio 13.8 (10-20) 02/27/23 23:53 Glucose 96 mg/dl (70-99(Fasting)) 02/27/23 23:53 Calcium 9.7 mg/dl (8.6-10.3) 02/27/23 23:53 Total Bilirubin 0.4 mg/dl (0.2-1.0) 02/27/23 23:53 AST 34 U/L (13-39) 02/27/23 23:53 ALT 32 U/L (7-52) 02/27/23 23:53 Alkaline Phosphatase 136 U/L (34-104) H 02/27/23 23:53 Troponin I High Sens 10.2 pg/ml (0-20) 02/28/23 02:24 Total Protein 7.5 gm/dl (6.0-8.3) 02/27/23 23:53 Albumin 4.5 gm/dl (3.4-5.0) 02/27/23 23:53 Globulin 3.0 gm/dl (2.5-4.0) 02/27/23 23:53 Albumin/Globulin Ratio 1.5 (0.9-2) 02/27/23 23:53 SARS-CoV-2 (PCR) POSITIVE (Negative) A* 02/28/23 03:53 Influenza Type A (PCR) Negative (Neg) 02/28/23 03:53 Influenza Type B (PCR) Negative (Neg) 02/28/23 03:53 RSV (RT-PCR) Negative (Neg) 02/28/23 03:53 ECG Additional Comments: ECG normal sinus rhythm with rate of 90. No significant change was found Code Status & VTE Plan VTE Prophylaxis Plan VTE Prophylaxis will be ordered: Yes
[2023-02-28] MEDS ORDERED: REMDESIVIR 200 MG in SODIUM CHLORIDE 0.9% 210 ML IV STA (07:08)
[2023-02-28] MEDS ORDERED: ONDANSETRON INJ 2 MG/ML 2 ML VIAL IV PRN (07:08)
[2023-02-28] MEDS ORDERED: NITROGLYCERIN SL 0.4 MG/TAB TAB SL PRN (07:08)
--- NOTE | 2023-02-28 07:45 | XRay Report ---
XR chest 1V not portable HISTORY: Chest pain, nonspecific COMPARISON: Chest 01/16/2023. FINDINGS: The lungs are clear. Cardiac silhouette is normal in size. No pleural effusions. No pneumot horax. IMPRESSION: No acute process. ACT 112: Negative or not required by law. Electronically signed by: Hardeep Olivas M.D. 02/28/2023 7:44 AM
[2023-02-28] MEDS: IPRATROPIUM BROMIDE NEB SOLN 0.02% 2.5 ML VIAL INH SCH ×4 (07:49→19:53)
[2023-02-28] MEDS: LEVALBUTEROL 1.25 MG/3 ML NEB NEB SCH ×4 (07:49→19:52)
[2023-02-28] MEDS: SODIUM CHLORIDE 0.9% 1,000 ML IV SCH ×2 (08:18→18:47)
[2023-02-28] MEDS: dexAMETHasone 6 MG in SYRINGE 0 ML IV SCH (08:18)
[2023-02-28 08:20] LABS: Basophils # (auto) 0.04 K/uL (0.00-0.20); Basophils % (auto) 0.5 %; Eosinophils # (auto) 0.01 K/uL (0.00-0.50); Eosinophils % (auto) 0.1 %; Hematocrit (blood only) 42.2 % (42.0-52.0); Hemoglobin 14.8 g/dl (14.0-18.0); Immature Granulocytes # (auto) 0.02 K/uL (0.01-0.20); Immature Granulocytes % (auto) 0.2 %; Lymphocytes # (auto) 1.36 K/uL (1.20-3.40); Lymphocytes % (auto) 15.8 %; Mean Corpuscular Hemoglobin 31.2 pg (25.0-34.0); Mean Corpuscular Hgb Conc 35.1 g/dL (32.0-36.0); Mean Platelet Volume 9.7 fL (9.4-12.4); Monocytes # (auto) 0.58 K/uL (0.11-0.59); Monocytes % (auto) 6.8 %; Neutrophils # (auto) 6.58 K/uL (1.40-6.50); Neutrophils % (auto) 76.6 %; Platelet Count 219 K/uL (130-400); RDW Coefficient of Variation 13.6 % (11.5-14.5); RDW Standard Deviation 44.8 fL (36.4-46.3); Red Blood Count 4.74 M/uL (4.70-6.10); White Blood Count 8.59 K/ul (4.8-10.8)
[2023-02-28] MEDS: ENOXAPARIN INJ 40 MG/0.4 ML SYR SQ SCH (08:21)
[2023-02-28 08:34] LABS: BUN Creatinine Ratio 15.8 (10-20); C Reactive Protein 12.17 mg/dl (0-0.5); Calcium 8.8 mg/dl (8.6-10.3); Creatinine Clr Calc Pharmacy 77.9 ml/min; Est GFR (African American) 77.8 ml/min; Est GFR (Non-African American) 67.1 ml/min; Magnesium 1.9 mg/dl (1.7-2.4); Potassium 4.1 mmol/L (3.5-5.1)
[2023-02-28] MEDS ORDERED: XOPENEX/ATROVENT 1.25mg/0.5MG NEB COMBO NEB SCH (09:00)
--- NOTE | 2023-02-28 15:26 | Communication Note ---
Date of Service: February 28, 2023 The patient was seen and examined in emergency room. 67-year-old male, completely vaccinated with 3 doses of vaccine comes in with increasing shortness of breath and desaturation for the last 2 or 3 days. Has been started 1 intravenous remdesivir and dexamethasone for COVID-19 virus infection. Requiring 2 to 3 L to maintain saturation. Full progress note will be done tomorrow. Dr Ady Pearson
[2023-02-28] MEDS: ACETAMINOPHEN 325 MG TAB PO PRN ×2 (15:29→20:29)
[2023-02-28] MEDS: FIRST - Mouthwash BLM 119 ML PO SCH ×2 (16:07→19:26)
[2023-02-28] MEDS ORDERED: ALBUTEROL HFA 8 GM INHALER INH PRN (20:45)
[2023-02-28] MEDS ORDERED: WARFARIN SOD 5 MG TAB PO ONE (20:46)
[2023-02-28] MEDS ORDERED: amLODIPine BESYLATE 5 MG TAB PO ONE (20:46)
[2023-02-28] MEDS ORDERED: ATORVASTATIN 20 MG TAB PO ONE (20:46)
[2023-02-28] MEDS: buPROPion SR 100 MG TABCR PO SCH (21:14)
[2023-02-28] MEDS: MONTELUKAST SODIUM 10 MG TABLET PO SCH (21:15)
[2023-02-28] MEDS ORDERED: BACLOFEN 10 MG TAB PO STA (22:43)
--- NOTE | 2023-02-28 23:34 | Electrocardiogram Report ---
Test Reason : Blood Pressure : / mmHG Vent. Rate : 090 BPM Atrial Rate : 090 BPM P-R Int : 122 ms QRS Dur : 078 ms QT Int : 338 ms P-R-T Axes : 045 055 045 degrees QTc Int : 413 ms Normal sinus rhythm Normal ECG When compared with ECG of 16-JAN-2023 07:50, No significant change was found Confirmed by Arley Hensley ([id number]) on 02/28/2023 11:34:15 PM Referred By: Puma Coburn Confirmed By:Arley Hensley
[2023-03-01] MEDS ORDERED: BACLOFEN 10 MG TAB PO STA (00:23)
[2023-03-01] MEDS: FIRST - Mouthwash BLM 119 ML PO SCH ×4 (01:14→19:12)
[2023-03-01] MEDS ORDERED: PANTOprazole 40 MG in SYRINGE 0 ML IV ONE (05:00)
[2023-03-01] MEDS ORDERED: METOCLOPRAMIDE HCL INJ 5 MG/ML 2 ML VIAL IV ONE ×2 (05:00→19:33)
[2023-03-01 05:05] LABS: Basophils # (auto) 0.01 K/uL (0.00-0.20); Basophils % (auto) 0.1 %; Eosinophils # (auto) 0.02 K/uL (0.00-0.50); Eosinophils % (auto) 0.3 %; Hematocrit (blood only) 37.5 % (42.0-52.0); Hemoglobin 12.8 g/dl (14.0-18.0); Immature Granulocytes # (auto) 0.03 K/uL (0.01-0.20); Immature Granulocytes % (auto) 0.4 %; Lymphocytes # (auto) 1.21 K/uL (1.20-3.40); Lymphocytes % (auto) 17.8 %; Mean Corpuscular Hgb Conc 34.1 g/dL (32.0-36.0); Mean Corpuscular Volume 90.8 fL (80.0-100.0); Monocytes # (auto) 0.63 K/uL (0.11-0.59); Monocytes % (auto) 9.3 %; Neutrophils % (auto) 72.1 %; Platelet Count 195 K/uL (130-400); RDW Coefficient of Variation 13.4 % (11.5-14.5); Red Blood Count 4.13 M/uL (4.70-6.10)
[2023-03-01 05:42] LABS: INR 3.4 (0.9-1.1); Prothrombin Time 34.7 Seconds (9.0-12.0)
[2023-03-01 05:45] LABS: Albumin Level 3.5 gm/dl (3.4-5.0); BUN Creatinine Ratio 19.6 (10-20); Bilirubin,Total 0.3 mg/dl (0.2-1.0); Calcium 8.3 mg/dl (8.6-10.3); Creatinine Clr Calc Pharmacy 96.5 ml/min; Est GFR (African American) 100.8 ml/min; Potassium 3.9 mmol/L (3.5-5.1); Total Protein 5.7 gm/dl (6.0-8.3)
[2023-03-01] MEDS: IPRATROPIUM BROMIDE NEB SOLN 0.02% 2.5 ML VIAL INH SCH ×2 (07:04→11:23)
[2023-03-01] MEDS: LEVALBUTEROL 1.25 MG/3 ML NEB NEB SCH ×2 (07:04→11:23)
[2023-03-01] MEDS: PANTOprazole 40 MG TAB PO SCH (07:54)
[2023-03-01] MEDS: amLODIPine BESYLATE 5 MG TAB PO SCH (07:54)
[2023-03-01] MEDS: buPROPion SR 100 MG TABCR PO SCH ×2 (07:54→22:41)
[2023-03-01] MEDS: CETIRIZINE HCL 10 MG TABLET PO SCH (07:54)
[2023-03-01] MEDS: ATORVASTATIN 20 MG TAB PO SCH (07:54)
[2023-03-01] MEDS: dexAMETHasone 6 MG in SYRINGE 0 ML IV SCH (07:55)
[2023-03-01] MEDS: ENOXAPARIN INJ 40 MG/0.4 ML SYR SQ SCH (07:55)
[2023-03-01] MEDS: FLUTICASONE FUROATE 100MCG 14 PUFFS/INHALER INH SCH (07:56)
[2023-03-01] MEDS: FLUTICASONE PROPIONATE NA SPR 16 GM BTL SCH (07:56)
[2023-03-01] MEDS: modafiniL 100 MG TAB PO SCH (08:10)
[2023-03-01] MEDS: REMDESIVIR 100 MG in SODIUM CHLORIDE 0.9% 230 ML IV SCH (13:14)
[2023-03-01] MEDS: IPRATROPIUM BROMIDE NEB SOLN 0.02% 2.5 ML VIAL INH PRN (15:41)
[2023-03-01] MEDS: LEVALBUTEROL 1.25 MG/3 ML NEB NEB PRN (15:41)
--- NOTE | 2023-03-01 15:44 | Hospitalist Progress Note ---
Date of Service March 01, 2023 Assessment & Plan (1) Hypoxia: Plan: 67-year-old male with past med significant for MTHFR gene mutation history of DVT and PE, hyperlipidemia, prediabetes, thyroid nodule, mild persistent asthma, allergic rhinitis, right lung nodule, diastolic dysfunction, hypertension, ulcerative colitis, GERD, chronic fatigue syndrome, allergic conjunctivitis, depression, ADHD, presents with shortness of breath since last Tuesday. Home COVID test came back positive. Was saturating 87% on room air in the ER. Secondary to COVID-19 virus infection and is complicated by history of asthma Patient is vaccinated by 3 doses of vaccine Chest x-ray did not show any pneumonia and/or CHF CRP was elevated to more than 12 Has been on intravenous dexamethasone and remdesivir. Has been in COVID isolation Clinically much better and is still requiring 2 L to maintain saturation Asthma exasperation IV remdesivir, IV Decadron Continue home inhalers Nebs have been changed to as needed Clinically much better without any wheezing We will continue current management History of DVT and PE MTHFR gene mutation On Coumadin. INR 1.7 INR is 3.4 today-we will continue Coumadin as per protocol Prediabetes Monitor blood sugars while on steroids Will check hemoglobin A1c Has a chronic diastolic dysfunction Monitor for volume overload No signs and or symptoms of fluid overload Hypertension Continue amlodipine We will monitor blood pressure Hyperlipidemia On statin GERD Omeprazole Depression Continue home medications DVT prophylaxis on Coumadin INR 1.7. Lovenox until INR therapeutic Lovenox is discontinued Disposition med/telemetry Full code Admission and Anticipated Discharge Date Admission Date: February 28, 2023 Subjective 03/01/2023 The patient was seen and examined in the emergency room He is being admitted but has not got a bed yet to come up Has been feeling much better Denies any shortness of breath at rest and has been requiring 2 L Remains generally weak Review of Systems Review of Systems: All systems reviewed and are unremarkable except as noted below Respiratory: Minimal shortness of breath at rest Physical Exam Physical Exam: Lying in bed comfortably Constitutional: well developed, well nourished, + ill appearing and average body habitus Eyes: PERRL, conjunctivae normal, anicteric sclerae ENMT: external ear and nose normal, oropharynx normal Neck: trachea midline, no thyromegaly Respiratory: no respiratory distress Auscultation: + diminished lung sounds and + crackles (Occasional crackles at the bases) Cardiovascular: Rate/Rhythm: regular rate and regular rhythm; not tachycardic Heart Sounds: normal S1 and normal S2; no murmur Extremities: + edema (Trace edema bilaterally) Gastrointestinal (Abdomen): Inspection/Auscultation: normal bowel sounds; abdomen not distended Percussion/Palpation: abdomen soft; abdomen nontender Musculoskeletal: No acute arthritis involving any of the joint Neurologic: normal touch/pain/proprioception and moves all extremities; no focal motor deficits Lymphatic: no cervical or axillary lymphadenopathy Results & Data Results & Data Vital Signs (Past 12 Hours) Vital Signs Pulse Pulse Resp BP Pulse Ox O2 Del Method O2 Flow Rate 03/01/23 15:11 59 L 03/01/23 15:00 62 16 119/64 94 Nasal Cannula 2 03/01/23 09:13 Nasal Cannula 2 03/01/23 08:47 72 18 132/80 03/01/23 07:04 80 16 97 Nasal Cannula 2 Laboratory Results Short CBC 03/01/23 Range/Units 04:29 WBC 6.80 (4.8-10.8) K/ul Hgb 12.8 L (14.0-18.0) g/dl Hct 37.5 L (42.0-52.0) % Plt Count 195 (130-400) K/uL BMP 03/01/23 04:29 Sodium 138 Potassium 3.9 Chloride 105 Carbon Dioxide 28 BUN 18 Creatinine 0.92 Glucose 101 H Calcium 8.3 L Liver Function 03/01/23 Range/Units 04:29 Total Bilirubin 0.3 (0.2-1.0) mg/dl Direct Bilirubin 0.0 (0-0.2) mg/dl AST 21 (13-39) U/L ALT 20 (7-52) U/L Alkaline Phosphatase 94 (34-104) U/L Albumin 3.5 (3.4-5.0) gm/dl Medications Administered Current Inpatient Medications Acetaminophen (Acetaminophen 325 Mg Tab) 650 mg PO Q4H PRN PRN Reason: Pain or Fever Stop: 03/30/23 07:07 Last Admin: 02/28/23 20:29 Dose: 650 mg Albuterol (Albuterol Hfa 8 Gm Inhaler) 2 puffs INH Q4H PRN PRN Reason: Shortness Of Breath Or Wheezing Stop: 03/30/23 20:44 Amlodipine Besylate (Amlodipine Besylate 5 Mg Tab) 5 mg PO DAILY [facility] Stop: 03/31/23 08:59 Last Admin: 03/01/23 07:54 Dose: 5 mg Atorvastatin Calcium (Atorvastatin 20 Mg Tab) 20 mg PO DAILY [facility] Stop: 03/31/23 08:59 Last Admin: 03/01/23 07:54 Dose: 20 mg Bupropion HCl (Bupropion Sr 100 Mg Tabcr) 200 mg PO BID [facility] Stop: 03/30/23 20:59 Last Admin: 03/01/23 07:54 Dose: 200 mg Cetirizine HCl (Cetirizine Hcl 10 Mg Tablet) 10 mg PO DAILY [facility] Stop: 03/31/23 08:59 Last Admin: 03/01/23 07:54 Dose: 10 mg Enoxaparin Sodium (Enoxaparin Inj 40 Mg/0.4 Ml Syr) 40 mg SQ Q24H [facility] Stop: 03/30/23 07:07 Last Admin: 03/01/23 07:55 Dose: 40 mg Fluticasone Furoate (Fluticasone Furoate 100mcg 14 Puffs/Inhaler) 1 puffs INH DAILY [facility]; Protocol Stop: 03/31/23 08:59 Last Admin: 03/01/23 07:56 Dose: 1 puffs Fluticasone Propionate (Fluticasone Propionate Na Spr 16 Gm Btl) 2 sprays NA D AILY [facility] Stop: 03/31/23 08:59 Last Admin: 03/01/23 07:56 Dose: 2 sprays Remdesivir 100 mg/ Sodium (Chloride) 250 mls @ 250 mls/hr IV Q24H [facility] Stop: 03/04/23 12:59 Last Infusion: 03/01/23 15:22 Dose: Infused Dexamethasone 6 mg/ Syringe 1.5 mls @ 1 mls/min IV DAILY [facility] Stop: 03/10/23 08:59 Last Admin: 03/01/23 07:55 Dose: 1 mls/min Ipratropium Atlantic (Ipratropium [place] Neb Soln 0.02% 2.5 Ml Vial) 0.5 mg INH QIDR PRN PRN Reason: Vomiting Stop: 03/30/23 07:07 Levalbuterol HCl (Levalbuterol 1.25 Mg/3 Ml Neb) 1.25 mg NEB QIDR PRN PRN Reason: Wheezing Stop: 03/30/23 07:07 Modafinil (Modafinil 100 Mg Tab) 200 mg PO DAILY [facility] Stop: 03/31/23 08:59 Last Admin: 03/01/23 08:10 Dose: Not Given Montelukast Sodium (Montelukast Sodium 10 Mg Tablet) 10 mg PO HS [facility] Stop: 03/30/23 20:59 Last Admin: 02/28/23 21:15 Dose: 10 mg Multi-Ingredient Mouthwash/Gargle (First - Mouthwash Blm 119 Ml) 5 ml PO Q6H [facility] Stop: 03/30/23 13:59 Last Admin: 03/01/23 13:19 Dose: 5 ml Nitroglycerin (Nitroglycerin Sl 0.4 Mg/Tab Tab) 0.4 mg SL Q5M PRN PRN Reason: Chest Pain Stop: 03/30/23 07:07 Ondansetron HCl (Ondansetron Inj 2 Mg/Ml 2 Ml Vial) 4 mg IV Q6H PRN PRN Reason: Nausea Stop: 03/30/23 07:07 Pantoprazole Sodium (Pantoprazole 40 Mg Tab) 40 mg PO DAILY [facility] Stop: 03/31/23 08:59 Last Admin: 03/01/23 07:54 Dose: 40 mg Warfarin Sodium (Warfarin Sod 5 Mg Tab) 5 mg PO DAILY@1600 [facility] Stop: 03/31/23 15:59
[2023-03-01] MEDS ORDERED: WARFARIN SOD 5 MG TAB PO SCH (16:00)
[2023-03-01] MEDS: MONTELUKAST SODIUM 10 MG TABLET PO SCH (22:42)
[2023-03-02] MEDS: amLODIPine BESYLATE 5 MG TAB PO SCH (08:53)
[2023-03-02] MEDS: buPROPion SR 100 MG TABCR PO SCH ×2 (08:53→22:10)
[2023-03-02] MEDS: dexAMETHasone 6 MG in SYRINGE 0 ML IV SCH (08:53)
[2023-03-02] MEDS: PANTOprazole 40 MG TAB PO SCH (08:54)
[2023-03-02] MEDS: CETIRIZINE HCL 10 MG TABLET PO SCH (08:54)
[2023-03-02] MEDS: ATORVASTATIN 20 MG TAB PO SCH (08:54)
[2023-03-02] MEDS: FLUTICASONE PROPIONATE NA SPR 16 GM BTL SCH (08:54)
[2023-03-02] MEDS: modafiniL 100 MG TAB PO SCH (08:54)
[2023-03-02] MEDS: FIRST - Mouthwash BLM 119 ML PO SCH ×4 (08:55→22:09)
[2023-03-02] MEDS: FLUTICASONE FUROATE 100MCG 14 PUFFS/INHALER INH SCH (08:56)
[2023-03-02 09:35] LABS: Basophils # (auto) 0.01 K/uL (0.00-0.20); Basophils % (auto) 0.2 %; Eosinophils # (auto) 0.01 K/uL (0.00-0.50); Eosinophils % (auto) 0.2 %; Hematocrit (blood only) 37.9 % (42.0-52.0); Hemoglobin 13.2 g/dl (14.0-18.0); Immature Granulocytes # (auto) 0.02 K/uL (0.01-0.20); Immature Granulocytes % (auto) 0.4 %; Lymphocytes # (auto) 1.58 K/uL (1.20-3.40); Lymphocytes % (auto) 27.8 %; Mean Corpuscular Hgb Conc 34.8 g/dL (32.0-36.0); Mean Platelet Volume 10.2 fL (9.4-12.4); Monocytes # (auto) 0.66 K/uL (0.11-0.59); Monocytes % (auto) 11.6 %; Neutrophils # (auto) 3.41 K/uL (1.40-6.50); Neutrophils % (auto) 59.8 %; Platelet Count 175 K/uL (130-400); RDW Coefficient of Variation 13.7 % (11.5-14.5); RDW Standard Deviation 44.6 fL (36.4-46.3); Red Blood Count 4.26 M/uL (4.70-6.10); White Blood Count 5.69 K/ul (4.8-10.8)
[2023-03-02 09:51] LABS: INR 4.8 (0.9-1.1)
[2023-03-02 09:58] LABS: C Reactive Protein 4.48 mg/dl (0-0.5); Calcium 8.4 mg/dl (8.6-10.3); Creatinine Clr Calc Pharmacy 101.7 ml/min; Est GFR (African American) 104.5 ml/min; Est GFR (Non-African American) 90.1 ml/min
[2023-03-02] MEDS: REMDESIVIR 100 MG in SODIUM CHLORIDE 0.9% 230 ML IV SCH (13:13)
--- NOTE | 2023-03-02 15:28 | Hospitalist Progress Note ---
Date of Service March 02, 2023 Assessment & Plan (1) Hypoxia: Plan: 67-year-old male with past med significant for MTHFR gene mutation history of DVT and PE, hyperlipidemia, prediabetes, thyroid nodule, mild persistent asthma, allergic rhinitis, right lung nodule, diastolic dysfunction, hypertension, ulcerative colitis, GERD, chronic fatigue syndrome, allergic conjunctivitis, depression, ADHD, presents with shortness of breath since last Tuesday [employer]. Home COVID test came back positive. Was saturating 87% on room air in the ER. He is being managed for the following: Infection due to COVID - 19 virus Hypoxia Hypoxia secondary to COVID-19 virus infection and is complicated by history of asthma Patient is vaccinated by 3 doses of vaccine Chest x-ray did not show any pneumonia and/or CHF CRP was elevated to more than 12 Has been on intravenous dexamethasone and remdesivir 02/28. Has been in COVID isolation Clinically much better and is still requiring 2 L to maintain saturation Likely will need 2 step prior to DC, wean down O2 as rosa m, also c/w IS. Asthma exacerbation IV remdesivir, IV Decadron Continue home inhalers Nebs have been changed to as needed Clinically much better without any wheezing We will continue current management History of DVT and PE MTHFR gene mutation On Coumadin. INR 4.8 today, will hold coumadin, and INR in AM. Prediabetes Monitor blood sugars while on steroids Will check hemoglobin A1c Has a chronic diastolic dysfunction Monitor for volume overload No signs and or symptoms of fluid overload Hypertension Continue amlodipine We will monitor blood pressure Hyperlipidemia:On statin GERD: Omeprazole Depression: Continue home medications DVT prophylaxis on Coumadin. Disposition med/telemetry, likely DC in next 1 to 2 days. Full code Admission and Anticipated Discharge Date Admission Date: February 28, 2023 Subjective Patient is seen and examined at bedside as a follow-up of COVID-19 infection and hypoxia in the background of history of asthma. Patient was lying in bed, 2 L oxygen via nasal cannula, diminished lung sounds and occasional bibasal crackles on exam, reports eating okay, denies diarrhea, reports weakness, reports improving cough. Denies headache or dizziness or fever. Physical Exam Physical Exam: GENERAL: Alert and oriented x3. NAD, on RA. Overweight. HEENT: No pallor, no icterus. Pupils equal, round and reactive to light. Oral mucosa moist. NECK: No JVD, no neck masses. HEART: S1 and S2 heard. Regular rate and rhythm. No murmur, no gallop. RESPIRATORY SYSTEM: Normal AP diameter. No accessory muscle use. occ b/b crackles. diminished breath sounds ABDOMEN: Soft, bowel sounds present, nontender, no distention. CENTRAL NERVOUS SYSTEM: No facial droop. Speech is clear. Obeys simple commands. Moves extremities. EXTREMITIES: No edema, no erythema seen. Results & Data Results & Data Vital Signs (Past 12 Hours) Vital Signs Temp Pulse Pulse Resp BP Pulse Ox O2 Del Method 03/02/23 14:35 36.8 C 74 18 112/70 92 Nasal Cannula 03/02/23 08:00 Room Air, Nasal Cannula 03/02/23 07:47 36.5 C 73 16 108/66 90 Nasal Cannula 03/02/23 07:00 60 03/02/23 05:45 36.7 C 70 12 103/67 91 Room Air O2 Flow Rate 03/02/23 14:35 1.5 03/02/23 08:00 03/02/23 07:47 2 03/02/23 07:00 03/02/23 05:45
[2023-03-02] MEDS: LEVALBUTEROL 1.25 MG/3 ML NEB NEB PRN ×2 (18:26→22:21)
[2023-03-02] MEDS: IPRATROPIUM BROMIDE NEB SOLN 0.02% 2.5 ML VIAL INH PRN ×2 (18:26→22:21)
[2023-03-02] MEDS ORDERED: PROMETHAZINE HCL 6.25 MG in SODIUM CHLORIDE 0.9% 50 ML IV PRN (20:35)
[2023-03-02] MEDS: MONTELUKAST SODIUM 10 MG TABLET PO SCH (22:10)
[2023-03-02] MEDS ORDERED: MAGNESIUM SULFATE / D5W 1 GM/100 ML BAG IV ONE (23:15)
[2023-03-02] MEDS ORDERED: methylPREDNISolone 20 MG in SYRINGE 0 ML IV STA (23:18)
[2023-03-02 23:40] LABS: Base Excess ABG 3.1 mEq/L (-9-1.8); HCO3 ABG 27 mmol/L (19-24); Oxygen Saturation ABG 97.7 % (90-95); PCO2 ABG 38 mmHg (35-46); PO2 ABG 80 mmHg (80-95); pH ABG 7.46 (7.35-7.45)
[2023-03-02 23:42] LABS: Magnesium 1.8 mg/dl (1.7-2.4)
[2023-03-02 23:44] LABS: Allen Test Pos (Pos)
[2023-03-03] MEDS ORDERED: BACLOFEN 10 MG TAB PO STA (00:25)
[2023-03-03] MEDS: FIRST - Mouthwash BLM 119 ML PO SCH ×4 (01:03→20:36)
--- NOTE | 2023-03-03 06:54 | XRay Report ---
XR chest 1V portable HISTORY: 67 years-old Male low o2 acute hypoxia COMPARISON: 02/28/2023 TECHNIQUE: AP view of the chest FINDINGS: Cardiomediastinal and hilar silhouettes are within normal limits. There is no pneumothorax, pleural e ffusion, airspace consolidation or pulmonary edema. Bones appear grossly intact. IMPRESSION: No acute process. ACT 112: Negative or not required by law. The above report was generated using voice recognition software. It may contain grammatical, syntax o r spelling errors. Electronically signed by: Jeffery Norman M.D. 03/03/2023 6:52 AM
[2023-03-03] MEDS: LEVALBUTEROL 1.25 MG/3 ML NEB NEB PRN (07:41)
[2023-03-03] MEDS: IPRATROPIUM BROMIDE NEB SOLN 0.02% 2.5 ML VIAL INH PRN (07:41)
[2023-03-03] MEDS: dexAMETHasone 6 MG in SYRINGE 0 ML IV SCH (08:37)
[2023-03-03] MEDS: CETIRIZINE HCL 10 MG TABLET PO SCH (08:38)
[2023-03-03] MEDS: PANTOprazole 40 MG TAB PO SCH (08:38)
[2023-03-03] MEDS: amLODIPine BESYLATE 5 MG TAB PO SCH (08:38)
[2023-03-03] MEDS: modafiniL 100 MG TAB PO SCH (08:38)
[2023-03-03] MEDS: ATORVASTATIN 20 MG TAB PO SCH (08:38)
[2023-03-03] MEDS: buPROPion SR 100 MG TABCR PO SCH ×2 (08:38→20:36)
[2023-03-03] MEDS: FLUTICASONE FUROATE 100MCG 14 PUFFS/INHALER INH SCH (08:41)
[2023-03-03] MEDS: FLUTICASONE PROPIONATE NA SPR 16 GM BTL SCH (08:41)
[2023-03-03 09:21] LABS: Hematocrit (blood only) 41.2 % (42.0-52.0); Hemoglobin 14.4 g/dl (14.0-18.0); Mean Corpuscular Hemoglobin 30.8 pg (25.0-34.0); Mean Platelet Volume 10.2 fL (9.4-12.4); Platelet Count 198 K/uL (130-400); RDW Coefficient of Variation 13.3 % (11.5-14.5); RDW Standard Deviation 43.3 fL (36.4-46.3); Red Blood Count 4.68 M/uL (4.70-6.10); White Blood Count 4.95 K/ul (4.8-10.8)
[2023-03-03 09:38] LABS: BUN Creatinine Ratio 15.2 (10-20); Calcium 9.4 mg/dl (8.6-10.3); Creatinine Clr Calc Pharmacy 90.4 ml/min; Est GFR (African American) 92.2 ml/min; Est GFR (Non-African American) 79.6 ml/min; Magnesium 1.9 mg/dl (1.7-2.4); Potassium 3.6 mmol/L (3.5-5.1)
[2023-03-03 09:56] LABS: INR 3.7 (0.9-1.1); Prothrombin Time 37.4 Seconds (9.0-12.0)
[2023-03-03 10:07] LABS: Estimated Average Glucose 134 mg/dl; Hemoglobin A1C 6.3 % (4.5-5.6)
[2023-03-03] MEDS: REMDESIVIR 100 MG in SODIUM CHLORIDE 0.9% 230 ML IV SCH (12:14)
--- NOTE | 2023-03-03 16:46 | Hospitalist Progress Note ---
Date of Service March 03, 2023 Assessment & Plan (1) Hypoxia: Plan: 67-year-old male with past med significant for MTHFR gene mutation history of DVT and PE, hyperlipidemia, prediabetes, thyroid nodule, mild persistent asthma, allergic rhinitis, right lung nodule, diastolic dysfunction, hypertension, ulcerative colitis, GERD, chronic fatigue syndrome, allergic conjunctivitis, depression, ADHD, presents with shortness of breath since last Tuesday [employer]. Home COVID test came back positive. Was saturating 87% on room air in the ER. He is being managed for the following: Infection due to COVID - 19 virus Hypoxia Hypoxia secondary to COVID-19 virus infection and is complicated by history of asthma Patient is vaccinated by 3 doses of vaccine Chest x-ray did not show any pneumonia and/or CHF CRP was elevated to more than 12 Has been on intravenous dexamethasone and remdesivir 02/28. Has been in COVID isolation Clinically much better and w/ variable O2 need by AM today, will complete remedesivir course Mild elevation in ALT, no signs of liver inflammation noted. Will monitor lft. Encourage ambulation, c/w IS. Asthma exacerbation IV remdesivir, IV Decadron Continue home inhalers Nebs have been changed to as needed Clinically much better without any wheezing We will continue current management will need PO steroid on DC History of DVT and PE MTHFR gene mutation On Coumadin. INR 3.7 today, will hold coumadin, and INR in AM. Prediabetes Monitor blood sugars while on steroids Will check hemoglobin A1c Has a chronic diastolic dysfunction Monitor for volume overload No signs and or symptoms of fluid overload Hypertension Continue amlodipine We will monitor blood pressure Hyperlipidemia:On statin GERD: Omeprazole Depression: Continue home medications DVT prophylaxis on Coumadin - held, supra INR. Disposition med/telemetry, likely DC donn Full code Admission and Anticipated Discharge Date Admission Date: February 28, 2023 Subjective Patient is seen and examined at bedside as a follow-up of COVID-19 infection and hypoxia in the background of history of asthma. Patient was lying in bed, needed upto 5 L O2 early in the morning, diminished lung sounds and occasional bibasal crackles on exam - improving, reports eating okay, denies diarrhea, reports weakness, reports improving cough. Denies headache or dizziness or fever. Pt encouraged to mobilize in the room and reports compliance with IS. Physical Exam Physical Exam: GENERAL: Alert and oriented x3. NAD, on RA. Overweight. HEENT: No pallor, no icterus. Pupils equal, round and reactive to light. Oral mucosa moist. NECK: No JVD, no neck masses. HEART: S1 and S2 heard. Regular rate and rhythm. No murmur, no gallop. RESPIRATORY SYSTEM: Normal AP diameter. No accessory muscle use. occ b/b crackles. diminished breath sounds ABDOMEN: Soft, bowel sounds present, nontender, no distention. CENTRAL NERVOUS SYSTEM: No facial droop. Speech is clear. Obeys simple commands. Moves extremities. EXTREMITIES: No edema, no erythema seen. Results & Data Results & Data Vital Signs (Past 12 Hours) Vital Signs Temp Pulse Pulse Resp BP Pulse Ox O2 Del Method 03/03/23 11:48 36.7 C 85 19 123/70 95 Room Air 03/03/23 08:24 36.6 C 88 17 136/79 95 Oxymask 03/03/23 07:42 71 20 92 Room Air 03/03/23 07:39 65 O2 Flow Rate 03/03/23 11:48 03/03/23 08:24 4 03/03/23 07:42 5 03/03/23 07:39
[2023-03-03] MEDS: MONTELUKAST SODIUM 10 MG TABLET PO SCH (20:36)
[2023-03-04] MEDS: FIRST - Mouthwash BLM 119 ML PO SCH ×2 (01:15→10:06)
[2023-03-04 07:15] LABS: BUN Creatinine Ratio 17.3 (10-20); Calcium 8.8 mg/dl (8.6-10.3); Creatinine Clr Calc Pharmacy 91.3 ml/min; Est GFR (African American) 93.4 ml/min; Est GFR (Non-African American) 80.6 ml/min; Potassium 3.9 mmol/L (3.5-5.1)
[2023-03-04] MEDS: REMDESIVIR 100 MG in SODIUM CHLORIDE 0.9% 230 ML IV SCH (10:03)
[2023-03-04] MEDS: FLUTICASONE PROPIONATE NA SPR 16 GM BTL SCH (10:06)
[2023-03-04] MEDS: FLUTICASONE FUROATE 100MCG 14 PUFFS/INHALER INH SCH (10:06)
[2023-03-04] MEDS: PANTOprazole 40 MG TAB PO SCH (10:07)
[2023-03-04] MEDS: ATORVASTATIN 20 MG TAB PO SCH (10:07)
[2023-03-04] MEDS: buPROPion SR 100 MG TABCR PO SCH (10:07)
[2023-03-04] MEDS: amLODIPine BESYLATE 5 MG TAB PO SCH (10:08)
[2023-03-04] MEDS: CETIRIZINE HCL 10 MG TABLET PO SCH (10:08)
[2023-03-04] MEDS: modafiniL 100 MG TAB PO SCH (10:10)
[2023-03-04] MEDS: dexAMETHasone 6 MG in SYRINGE 0 ML IV SCH (10:49)
--- NOTE | 2023-03-04 11:52 | Discharge Summary ---
Date of Service March 04, 2023 Admission HPI Per Admitting Provider 67-year-old male with past med significant for MTHFR gene mutation history of DVT and PE, hyperlipidemia, prediabetes, thyroid nodule, mild persistent asthma, allergic rhinitis, right lung nodule, diastolic dysfunction, hypertension, ulcerative colitis, GERD, chronic fatigue syndrome, allergic conjunctivitis, depression, ADHD, presents with shortness of breath since last Tuesday. As per patient had fever, headache, runny nose, cough bringing phlegm, severe sore throat since last tuesday and as his was having COVID he tested at home last Tuesday and came back positive. Symptoms not getting better. Poor appetite. Feeling short of breath. Came to the ER. Was saturating 87% room air. On 2 L saturating okay. Has right-sided chest pain when he coughs. Vision is okay. Painful swallowing because of sore throat. No diarrhea or constipation. Not micturating much because he is not drinking much. Past medical history as mentioned above Past surgical history right arthroscopy, colonoscopy, dental surgery, drainage of scrotum, EGD with biopsy, vena cava filter placement and removal in 2011 tonsillectomy, Social history . Quit smoking 1994. Smoked 2 packs a day for 20 years. Alcohol once or twice a week. No drug use Family history father had small cell lung cancer, eye problems heart attacks. Mother has allergies colon cancer, colon polyps, hypertension. Uncle has colon cancer. Brother has allergies. Brother has heart disorder Admission Exam Per Admitting Provider General- Not in distress. Head- atraumatic Eyes- PERRL. ENT- oropharynx clear Neck- supple, no JVD, Lungs- clear to auscultation no obvious wheezing or crackles. Heart- regular rhythm; no murmur, no gallop. Abdomen- normal bowel sounds, soft, nontender, no distension. Extremities- no pretibial edema, no erythema seen. Neuro- alert, oriented x 3; PERRL, EOMI; no facial palsy; no dysarthria. Skin- warm & dry Principal Diagnosis Infection due to COVID-19 virus Hypoxia, resolved Asthma exacerbation Discharge Exam GENERAL: Alert and oriented x3. NAD, on RA. Overweight. HEENT: No pallor, no icterus. Pupils equal, round and reactive to light. Oral mucosa moist. NECK: No JVD, no neck masses. HEART: S1 and S2 heard. Regular rate and rhythm. No murmur, no gallop. RESPIRATORY SYSTEM: Normal AP diameter. No accessory muscle use. occ b/b crackles. diminished breath sounds -- improving ABDOMEN: Soft, bowel sounds present, nontender, no distention. CENTRAL NERVOUS SYSTEM: No facial droop. Speech is clear. Obeys simple commands. Moves extremities. EXTREMITIES: No edema, no erythema seen. Discharge Data Allergies Allergy/AdvReac Type Severity Reaction Status Date / Time shellfish derived Allergy Unknown SWELLS UP Verified 02/07/23 05:59 Consultations 02/28/23 03:40 ED Decision to Admit Stat Hospital Course (1) Hypoxia: 67-year-old male with past med significant for MTHFR gene mutation history of DVT and PE, hyperlipidemia, prediabetes, thyroid nodule, mild persistent asthma, allergic rhinitis, right lung nodule, diastolic dysfunction, hypertension, ulcerative colitis, GERD, chronic fatigue syndrome, allergic conjunctivitis, depression, ADHD, presents with shortness of breath since last Tuesday [employer]. Home COVID test came back positive. Was saturating 87% on room air in the ER. He was managed for the following: Infection due to COVID - 19 virus Hypoxia Hypoxia secondary to COVID-19 virus infection and is complicated by history of asthma Patient is vaccinated by 3 doses of vaccine Chest x-ray did not show any pneumonia and/or CHF CRP was elevated to more than 12 Has been on intravenous dexamethasone and remdesivir 02/28. Has been in COVID isolation Status post remdesivir course. Has been on room air since yesterday. Mild elevation in ALT, no signs of liver inflammation noted. LFT better today. LFT in 1 week upon discharge with PCP office. Encourage ambulation, c/w IS. Asthma exacerbation IV remdesivir, IV Decadron Continue home inhalers Nebs have been changed to as needed Clinically much better without any wheezing We will continue current management Tapering dose of steroid on DC History of DVT and PE MTHFR gene mutation On Coumadin. INR 3.0 today, resume home Coumadin, follow-up with Coumadin clinic in 3 days upon discharge. Prediabetes Monitor blood sugars while on steroids Will check hemoglobin A1c Has a chronic diastolic dysfunction Monitor for volume overload No signs and or symptoms of fluid overload Hypertension Continue amlodipine We will monitor blood pressure Hyperlipidemia:On statin GERD: Omeprazole Depression: Continue home medications DVT prophylaxis on Coumadin - held, supra INR. Disposition med/telemetry, likely DC donn Full code Patient being discharged home with following instruction at the point of discharge: Follow-up with your primary care physician within a week time and likely you will need labs CBC/CMP/magnesium/phosphorus. You were admitted and managed for hypoxia due to COVID-19 virus infection. You received 5 days course of remdesivir. Please take your incentive spirometer with you. Continue with incentive spirometer every hour while awake for next 1 to 2 weeks. For your asthma exacerbation, you will be discharged on tapering dose of steroid. Continue to take your home meds. If you have any trouble breathing/increased work of breathing/worsening r espiratory status/shortness of breath, please contact your PCP office or emergency immediately. Take your home warfarin dose as prior, follow-up with Coumadin clinic in 2 to 3 days upon discharge. Maintain mask around people for next 5 days. Take your medications as prescribed. Please make sure that you are able to get your medications today by calling your pharmacy before you leave the hospital so that your treatment continuity is not broken. Home Health Attestation I certify that this patient is under my care and that I, or a physicians a ssistant working with me, had a face to-face encounter that meets the home health [id number] encounter requirements with this patient. The encounter with the patient was in whole, or in part, for the following medical condition, which is the primary reason for home health care (list medical condition): I certify that, based on my findings, the following services are medically necessary home health services: My clinical findings support the need for the above services because: Further, I certify that my clinical findings support that this patient is homebound (i.e. absences from home require considerable and taxing effort and are for medical reasons or sikhism services or infrequently or of short duration when for other reasons) because: Certification for Home Health Services: Based on the above findings, I certify that this patient is confined to the home and needs intermittent longterm care, physical therapy and/or speech therapy or continues to need occupational therapy. The patient is under my care, and I have initiated the establishment of the plan of care. This patient will be followed by a physician who will periodically review the plan of care. Total Time Total Time Spent Total Time Spent (In Minutes): 35 Discharge Plan Discharge Items Patient Disposition: Home - Self-Care Reason For Visit: COVID, HYPOXIA Discharge Diagnosis: Infection due to COVID-19 virus Hypoxia, resolved Asthma exacerbation Activity: Resume your previous activity Non-emergency contact: Primary Care Provider Call non-emergency contact if: you have any medication questions, your symptoms worsen and your temperature is above 101 Follow-up/Referrals: Puma Coburn MD [Primary Care Provider] - (Date & Time 03/10/2023 9:40 AM Provider Gerald Adame PA-C Department General Internal Medicine [facility] ) Diet: Heart Healthy Addtl Attending Provider Instructions: Follow-up with your primary care physician within a week time and likely you will need labs CBC/CMP/magnesium/phosphorus. You were admitted and managed for hypoxia due to COVID-19 virus infection. You received 5 days course of remdesivir. Please take your incentive spirometer with you. Continue with incentive spirometer every hour while awake for next 1 to 2 weeks. For your asthma exacerbation, you will be discharged on tapering dose of steroid. Continue to take your home meds. If you have any trouble breathing/increased work of breathing/worsening respiratory status/shortness of breath, please contact your PCP office or felipa oneill immediately. Take your home warfarin dose as prior, follow-up with Coumadin clinic in 2 to 3 days upon discharge. Maintain mask around people for next 5 days. Take your medications as prescribed. Please make sure that you are able to get your medications today by calling your pharmacy before you leave the hospital so that your treatment continuity is not broken. Pending Studies at Discharge: No Stand-Alone Forms: My [facility] APR, Smoking Cessation Medications and DC Order Prescriptions: New dexamethasone 4 mg tablet 4 mg PO UD 5 Days Qty: 4 0RF Rx Instructions: 1 tab daily for 3 days; then half tab daily for 2 days. Continued atorvastatin 20 mg tablet 20 mg PO DAILY cetirizine 10 mg tablet 10 mg PO DAILY amlodipine 5 mg tablet 5 mg PO DAILY modafinil 200 mg tablet 200 mg PO DAILY esomeprazole magnesium 40 mg capsule,delayed release(DR/EC) 40 mg PO DAILY warfarin 5 mg tablet 5 mg PO DAILY fluticasone propionate [Flovent HFA] 44 mcg/actuation HFA aerosol inhaler 2 puff INHALATION BID mometasone 50 mcg/actuation spray,non-aerosol 2 spray INTRANASAL DAILY montelukast 10 mg tablet 10 mg PO HS albuterol sulfate 90 mcg/actuation HFA aerosol inhaler 2 puff INHALATION Q4H PRN (Reason: Shortness Of Breath Or Wheezing) bupropion HCl 200 mg tablet sustained-release 12 hr 200 mg PO BID Discharge Orders: Discharge Order (Routine); Ordered 03/04/23 Ordered By: Janette Martinez/Other Patient Handouts: Prediabetes, 5 Steps for Eating Healthier Admission Data Admit Date/Time: 02/28/23 04:48 Attending Provider: Janette Snider Admit Provider: Deep Guardado Primary Care Provider: Puma Coburn Other Providers: Deep Guardado
== END 2023-03-04 12:46 | disposition home or self-care (01) | DRG 178 ==
LOC: ED 23:34 → SUATTDRO 02-28 04:48 → EDINP 02-28 04:48 → 2N 03-01 07:07